=== PATIENT | male | born 1935 | race Hispanic/Latino ===

== ENCOUNTER 2017-06-20 12:55 | Inpatient (IN) | payer MEDICARE, BC ==
[2017-06-20 13:03] VITALS: BMI 31.5
--- NOTE | 2017-06-20 13:09 | ED PDOC ---
HPI:STROKE - Time Time: 13:07 - Historian Historian: EMS - Chief Complaint Chief Complaint: Mental status change, Confusion ( heard pt fall in other room at 9AM today. Unkown head injury. Has been vomiting since then and has been confused with difficulty speeking. Pt has no c/o.) - Onset Date: 06/20/17 Time: 09:00 - Timing Timing: Currently Symptomatic - Location Location: Mental Status, Speech - Severity of pain Maximum severity:: Moderate Pain Scale:: 0 Severity Current: Moderate Pain Scale:: 0 - Exacerbated by Exacerbated by:: Nothing - Relieved by Relieved by:: Nothing - TPA Positive for Contraindication: Yes Reason tPA is not being Administered: greater than 4 hours since last seen nl NIHSS Stroke Scale - How Severe is the Stroke Level of Consciousness: 0=Alert LOC to Questions: 1=One correct LOC to commands: 0=Obeys both correctly Best Gaze: 0=Normal Visual: 0=No visual loss Facial: 0=Normal Motor Arm - Left: 0=No drift Motor Arm - Right: 0=No drift Motor Leg - Left: 0=No drift Motor Leg - Right: 0=No drift Limb Ataxia: 0=Absent Sensory: 0=Normal Best Language: 1=Mild to moderate aphasia Dysarthia: 0=Normal articulation Extinction & Inattention (Neglect): 0=Normal, no object Score: 2 rTPA Inclusion/Exclusion - Refusal of Treatment Patient Refused Treatment: No - Inclusion Criteria for Altepase Patient is 18 years or Older: Yes The Clinical Diagnosis of Ischemic Stroke That is Causing a Potentially Disabling Neurological Deficit: No Time of Onset is Well Established to be Less Than 270 Minute Before Treatment Would Begin: No Risk/Benefit Discussed With Patient/Family Member Present: No Past Medical History - Medical History PMH: CAD, Diabetes, Hiatal Hernia, HTN, Hypercholesterolemia, Hyperlipidemia Denies: Arthritis, CHF, COPD, Hypothyroidism, Chronic Kidney Disease, Rheumatoid Arthritis - Surgical History Surgical History: Coronary Stent - Family History Family History: States: Unknown Family Hx - Home Medications Home Medications: Ambulatory Orders Medication Instructions Recorded Atorvastatin Calcium 80 mg PO DAILY 12/30/15 Lisinopril [Zestril] 10 mg PO DAILY 12/30/15 Metformin HCl [Glucophage] 500 mg PO BID 12/30/15 Metoprolol Succinate [Toprol XL] 50 mg PO DAILY 12/30/15 Omeprazole 40 mg PO DAILY 12/30/15 Moxifloxacin HCl [Avelox] 400 mg PO DAILY #5 tablet 12/31/15 - Allergies Allergies/Adverse Reactions: Allergies Allergy/AdvReac Type Severity Reaction Status Date / Time shrimp Allergy REDNESS Verified 09/16/16 11:04 simvastatin [From Zocor] Allergy RASH Verified 12/30/15 02:36 Review of Systems Review Of Systems: ROS cannot be obtained secondary to pt's inabilty to answer questions. Physical Exam - Reviewed Nursing Documentation Reviewed: Yes Vital Signs Reviewed: Yes - Physical Exam Appears: Positive for: Non-toxic, No Acute Distress Head Exam: Positive for: ATRAUMATIC, NORMAL INSPECTION, NORMOCEPHALIC Skin: Positive for: Normal Color, Warm, DRY Eye Exam: Positive for: EOMI, Normal appearance, PERRL ENT: Positive for: Normal ENT Inspection Neck: Positive for: Normal, Painless ROM Cardiovascular/Chest: Positive for: Regular Rate, Rhythm Respiratory: Positive for: CNT, Normal Breath Sounds Gastrointestinal/Abdominal: Positive for: Normal Exam, Bowel Sounds, Soft Back: Positive for: Normal Inspection Extremity: Positive for: Normal ROM Neurologic/Psych: Positive for: Alert, Aphasia (Expressive). Negative for: Oriented (x1) - Laboratory Results Result Diagrams: 06/20/17 13:20 06/20/17 13:20 - Progress Re-evaluation Time: 14:31 Condition: Improved - Critical Care Total Time (In Min): 30 Documented Critical Care: Time excludes all time spent performint seperately billable procedures Medical Decision Making Medical Decision Making: Expressive aphsia improved as BP imroved after IV Labetalol 130/75. Given pt's shrimp allergy, will hold CTA brain. Diff Dx. CVA vs TIA Seizure Hypertensive encephalopathy. Discussefd with Dr. Araya, recommends MRI brain and EEG tomorrow as well as ASA Disposition - Clinical Impression Clinical Impression: CVA (cerebral vascular accident) - Patient ED Disposition Is Patient to be Admitted: Yes - Disposition Disposition Time: 14:31 Condition: FAIR Forms: [facility] ([place]) - Pt Status Changed To: Hospital Disposition Of: Inpatient - Admit Certification Admit to Inpatient:: After my assessment, the patient will require hospitalization for at least two midnights. This is because of the severity of symptoms shown, intensity of services needed, and/or the medical risk in this patient being treated as an outpatient. - POA Present On Arrival: None
[2017-06-20] MEDS ORDERED: Labetalol 5 mg/ml Inj 20ML IVP STA ×3 (13:24→18:02)
--- NOTE | 2017-06-20 13:33 | CT ---
PROCEDURE: CT HEAD WITHOUT CONTRAST. HISTORY: code stroke COMPARISON: None available. TECHNIQUE: Axial computed tomography images were obtained through the head/brain without intravenous contrast. Radiation dose: Total exam DLP = 884.03 mGy-cm. This CT exam was performed using one or more of the following dose reduction techniques: Automated exposure control, adjustment of the mA and/or kV according to patient size, and/or use of iterative reconstruction technique. FINDINGS: HEMORRHAGE: No acute parenchymal, subarachnoid nor extra-axial hemorrhage. BRAIN: Moderate -significant diffuse/confluent chronic white matter ischemic changes seen extending peripherally into the deep and subcortical white matter both cerebral hemispheres. There appears to be some extension of these changes into the white matter tracts of both basal nuclei. There also appear to be at chronic brainstem lacunar type infarct changes as well Moderate generalized volume loss. Dolichoectasia of the basilar artery. The supraclinoid carotid arteries and proximal middle cerebral arteries are also slightly ectatic. Minor partially calcified atherosclerotic plaque both carotid siphons VENTRICLES: No evidence of obstructive hydrocephalus. CALVARIUM: Calvarium appears intact PARANASAL SINUSES: Unremarkable as visualized. No significant inflammatory changes. MASTOID AIR CELLS: Unremarkable as visualized. No inflammatory changes. OTHER FINDINGS: None. IMPRESSION: No acute intracranial hemorrhage. Moderate to significant chronic white matter ischemic changes with extension into the basal nuclei. . There also appear to be a few chronic brainstem lacunar-type infarct changes as well. Moderate volume loss Findings discussed with Dr. Pereira at approximately 1:25 p.m. with written down and read back verification.
[2017-06-20 13:36] LABS: BASO % 0.3 % (0.0-2.0); HEMATOCRIT 37.7 % (35.0-51.0); LYMPH % 12.4 % (20.0-40.0); MEAN CELL VOLUME 87.6 fl (80.0-94.0); MEAN CORPUSCULAR HGB CONC 33.1 g/dL (33.0-37.0); MEAN PLATELET VOLUME 8.3 fl (7.2-11.7); MONO # 0.3 K/uL (0.0-0.8); NEUT # 7.1 K/uL (1.8-7.0); NEUT % 84.3 % (50.0-75.0); WHITE BLOOD COUNT 8.4 K/uL (4.8-10.8)
[2017-06-20 13:39] LABS: ALB/GLOB RATIO 1.4 (1.0-2.1); ALKALINE PHOSPHATASE 79 U/L (38-126); ALT/SGPT 24 U/L (21-72); AST/SGOT 20 U/L (17-59); BILIRUBIN,TOTAL 0.8 mg/dl (0.2-1.3); BLOOD UREA NITROGEN 19 mg/dl (9-20); CALCIUM 10.1 mg/dL (8.4-10.2); CARBON DIOXIDE 22 mmol/L (22-30); CHLORIDE 102 mmol/L (98-107); CHOLESTEROL 128 mg/dL (0-199); GFR AFRICAN-AMERICAN > 60; GLUCOSE,RANDOM 219 mg/dL (75-110); POTASSIUM 4.2 MMOL/L (3.6-5.0); SODIUM 138 mmol/l (132-148); TOTAL PROTEIN 7.1 G/DL (6.3-8.2)
[2017-06-20 13:45] LABS: PARTIAL THROMBOPLASTIN TIME 27.4 Seconds (25.6-37.1)
[2017-06-20] MEDS ORDERED: Iohexol 300 100 ML IJ ONE (13:58)
[2017-06-20] MEDS ORDERED: Sodium Chloride 0.9% 50 ML IV ONE (13:58)
[2017-06-20] MEDS ORDERED: Sodium Chloride 0.9% 1,000 ML IV STA (14:23)
--- NOTE | 2017-06-20 14:36 | RAD ---
HISTORY: cva COMPARISON: Comparison chest 12/31/2015 FINDINGS: LUNGS: Poor inspiration with low lung volumes, crowded bronchovascular markings and mild bibasilar atelectasis. . There is a vague nodular density left lung apex which overlies left anterior 1st and 3rd ribs. This could represent small granuloma. Followup nonemergent CT scan of the chest could be performed for further evaluation. PLEURA: No significant pleural effusion identified, no pneumothorax apparent. CARDIOVASCULAR: Heart appears enlarged. Aorta is ectatic and uncoiled. OSSEOUS STRUCTURES: Mild multilevel degenerative spondylosis of the thoracic spine. . Mild dextroscoliosis centered in the lower thoracic region VISUALIZED UPPER ABDOMEN: Normal. OTHER FINDINGS: None. IMPRESSION: Poor inspiration with low lung volumes, crowded bronchovascular markings and mild bibasilar atelectasis. Questionable small granuloma left lung apex ; nonemergent CT scan of the chest could be performed further evaluation. . .
--- NOTE | 2017-06-20 14:59 | CP.PCM.HP ---
History of Present Illness - History of Present Illness History of Present Illness: 82 yo male with history of DM2, HTN, CAD (stent 10 yrs ago) and HLD brought in by confused and speaking nonsense when talked to in the ER. As per ER, heard him fell in the other room earlier this morning. Apparently, he was doing okay prior to the incident. Present on Admission - Present on Admission Any Indicators Present on Admission: No History of DVT/PE: No History of Uncontrolled Diabetes: No Urinary Catheter: No Decubitus Ulcer Present: No Review of Systems - Review of Systems Systems not reviewed;Unavailable: Altered Mental Status Past Patient History - Tetanus Immunizations Tetanus Immunization: Unknown - Past Medical History & Family History Past Medical History?: Yes - Past Social History Smoking Status: Unknown If Ever Smoked - CARDIAC Hx Congestive Heart Failure: No Hx Hypercholesterolemia: Yes Hx Hypertension: Yes - PULMONARY Hx Chronic Obstructive Pulmonary Disease (COPD): No - NEUROLOGICAL HX Cerebrovascular Accident: No - HEENT Hx HEENT Problems: ([place]) - RENAL Hx Chronic Kidney Disease: No - ENDOCRINE/METABOLIC Hx Diabetes Mellitus Type 2: Yes Hx Hypothyroidism: No - HEMATOLOGICAL/ONCOLOGICAL Hx Blood Disorders: No - INTEGUMENTARY Hx Dermatological Problems: No - MUSCULOSKELETAL/RHEUMATOLOGICAL Hx Arthritis: No Hx Falls: Yes (also admitted last year because of fall) Hx Rheumatoid Arthritis: No - GASTROINTESTINAL Hx Gastrointestinal Disorders: Yes - GENITOURINARY/GYNECOLOGICAL Hx Genitourinary Disorders: No - PSYCHIATRIC Hx Psychophysiologic Disorder: No Hx Substance Use: No - SURGICAL HISTORY Hx Coronary Stent: Yes - ANESTHESIA Hx Anesthesia: Yes Hx Anesthesia Reactions: No Meds Allergies/Adverse Reactions: Allergies Allergy/AdvReac Type Severity Reaction Status Date / Time shrimp Allergy REDNESS Verified 09/16/16 11:04 simvastatin [From Zocor] Allergy RASH Verified 12/30/15 02:36 Physical Exam - Constitutional Appears: No Acute Distress, Confused - Head Exam Head Exam: ATRAUMATIC - Eye Exam Eye Exam: PERRL. absent: Scleral icterus - ENT Exam ENT Exam: Mucous Membranes Moist - Neck Exam Neck exam: Negative for: Meningismus - Respiratory Exam Respiratory Exam: absent: Rhonchi, Wheezes - Cardiovascular Exam Cardiovascular Exam: REGULAR RHYTHM, +S1, +S2 - GI/Abdominal Exam GI & Abdominal Exam: Soft. absent: Tenderness - Rectal Exam Rectal Exam: Deferred - Extremities Exam Extremities exam: Negative for: pedal edema - Neurological Exam Neurological exam: Altered Additional comments: no focal neurologic deficit - Psychiatric Exam Psychiatric exam: Flat Affect - Skin Skin Exam: Dry, Intact Results - Vital Signs Recent Vital Signs: Last Vital Signs Temp 98.8 F 06/20/17 14:36 Pulse 61 06/20/17 14:33 Resp 20 06/20/17 14:33 BP 155/113 H 06/20/17 14:33 Pulse Ox 98 06/20/17 13:56 - Labs Result Diagrams: 06/20/17 13:20 06/20/17 13:20 Labs: Laboratory Results - last 24 hr 06/20/17 06/20/17 06/20/17 13:20 13:20 13:20 WBC 8.4 RBC 4.31 L Hgb 12.5 Hct 37.7 MCV 87.6 MCH 29.0 MCHC 33.1 RDW 15.0 H Plt Count 171 MPV 8.3 Neut % (Auto) 84.3 H Lymph % (Auto) 12.4 L [place] % (Auto) 3.0 Eos % (Auto) 0.0 Baso % (Auto) 0.3 Neut # 7.1 H Lymph # 1.0 [place] # 0.3 Eos # 0.0 Baso # 0.0 PT 13.2 H INR 1.3 H APTT 27.4 Sodium 138 Potassium 4.2 Chloride 102 Carbon Dioxide 22 Anion Gap 18 BUN 19 Creatinine 0.9 Est GFR ( Amer) > 60 Est GFR (Non-Af Amer) > 60 Random Glucose 219 H Calcium 10.1 Total Bilirubin 0.8 AST 20 ALT 24 Alkaline Phosphatase 79 Troponin I < 0.0120 Total Protein 7.1 Albumin 4.2 Globulin 2.9 Albumin/Globulin Ratio 1.4 Triglycerides 66 Cholesterol 128 LDL Cholesterol Direct 58 HDL Cholesterol 53 Blood Type Antibody Screen BBK History Checked 06/20/17 13:20 WBC RBC Hgb Hct MCV MCH MCHC RDW Plt Count MPV Neut % (Auto) Lymph % (Auto) [place] % (Auto) Eos % (Auto) Baso % (Auto) Neut # Lymph # [place] # Eos # Baso # PT INR APTT Sodium Potassium Chloride Carbon Dioxide Anion Gap BUN Creatinine Est GFR ( Amer) Est GFR (Non-Af Amer) Random Glucose Calcium Total Bilirubin AST ALT Alkaline Phosphatase Troponin I Total Protein Albumin Globulin Albumin/Globulin Ratio Triglycerides Cholesterol LDL Cholesterol Direct HDL Cholesterol Blood Type B POSITIVE Antibody Screen Negative BBK History Checked No verified bt Assessment & Plan (1) CVA (cerebral vascular accident) Status: Acute Comment: admit in telemetry. MRI and EEG. swallow evaluation and management. PT evaluation and management. neuro consult with Dr Araya. will hold statin and other home meds until pass swallow eval (2) Fall Status: Acute Comment: PT evaluation and management. patient also admitted last year after falling incident (3) CAD (coronary artery disease) Status: Acute Comment: continue ASA SC. hold other PO meds until passing swallow evaluation. cardiology consult with Dr Mcgill (4) Hypertension Status: Chronic Comment: BP uncontrolled. Hydralazine 10mg IV for SBP > 180 (5) DM2 (diabetes mellitus, type 2) Status: Acute Comment: francisco javier BENITES. HgA1C, BMP in am (6) Hyperlipidemia Status: Chronic Comment: statin on hold because of failing swallow evaluation (7) DVT prophylaxis Status: Acute Comment: venodyne boots while in bed. will avoid anti-coagulant at present because of the history of fall, not certain whether patient banged his head
[2017-06-20] MEDS: Sodium Chloride 0.9% 1,000 ML IV SCH (16:09)
--- NOTE | 2017-06-20 16:54 | US ---
PROCEDURE: Duplex ultrasound of the carotid and vertebral arteries. HISTORY: CVA COMPARISON: None available. TECHNIQUE: Grayscale and duplex Doppler evaluation of the cervical carotid and vertebral arteries were performed. The common carotid, carotid bifurcations and cervical ICA and proximal ECA were evaluated. The vertebral arteries were evaluated for gross patency and direction. FINDINGS: RIGHT CAROTID ARTERIES: No significant atherosclerotic plaque seen however minimal intimal thickening noted in the right common carotid artery. Maximal right ICA velocity = 50.7 cm/S. Maximal left CCA velocity = 65.1 cm/S ICA/CCA ratio = 0.8. LEFT CAROTID ARTERIES: No significant atherosclerotic plaque minimal intimal thickening noted in the left common carotid artery. Maximal left ICA velocity = 65.1 cm/S Maximal left CCA velocity = 50.26 cm/S ICA/CCA ratio = 0.9 VERTEBRAL ARTERIES: Right Vertebral Artery: Patent. Antegrade flow. Left Vertebral Artery: Patent. Antegrade flow. OTHER FINDINGS: None. IMPRESSION: No evidence of atherosclerotic plaque changes, occlusion or hemodynamically significant stenosis.
[2017-06-20 20:49] LABS: HEMATOCRIT 35.4 % (35.0-51.0); MEAN CELL VOLUME 89.4 fl (80.0-94.0); MEAN CORPUSCULAR HGB CONC 32.4 g/dL (33.0-37.0); WHITE BLOOD COUNT 9.7 K/uL (4.8-10.8)
--- NOTE | 2017-06-20 22:35 | CARD ---
APPROVED REPORT EKG Measurement Heart [id number] <Conclusion> Normal sinus rhythm Left axis deviation Minimal voltage criteria for LVH, may be normal variant Nonspecific T wave abnormality Abnormal ECG
[2017-06-20] MEDS ORDERED: DiphenhydrAMINE 50 mg/ml Inj IVP ONE (23:45)
[2017-06-21] MEDS: Sodium Chloride 0.9% 1,000 ML IV SCH ×3 (00:58→16:40)
[2017-06-21] MEDS ORDERED: DiphenhydrAMINE 50 mg/ml Inj IVP ONE (02:10)
[2017-06-21 07:45] LABS: BLOOD UREA NITROGEN 21 mg/dl (9-20); CALCIUM 9.6 mg/dL (8.4-10.2); CARBON DIOXIDE 23 mmol/L (22-30); CHLORIDE 102 mmol/L (98-107); GFR AFRICAN-AMERICAN > 60; GLUCOSE,RANDOM 175 mg/dL (75-110); POTASSIUM 3.6 MMOL/L (3.6-5.0); SODIUM 138 mmol/l (132-148)
[2017-06-21 08:03] LABS: BASO % 0.1 % (0.0-2.0); HEMATOCRIT 33.6 % (35.0-51.0); LYMPH # 1.3 K/uL (1.0-4.3); LYMPH % 12.7 % (20.0-40.0); MEAN CELL VOLUME 88.1 fl (80.0-94.0); MEAN CORPUSCULAR HEMOGLOBIN 29.1 pg (27.0-31.0); MEAN CORPUSCULAR HGB CONC 33.1 g/dL (33.0-37.0); MEAN PLATELET VOLUME 8.8 fl (7.2-11.7); MONO # 1.3 K/uL (0.0-0.8); MONO % 12.2 % (0.0-10.0); NEUT # 7.7 K/uL (1.8-7.0); RED CELL DISTRIBUTION WIDTH 14.8 % (11.5-14.5); WHITE BLOOD COUNT 10.2 K/uL (4.8-10.8)
[2017-06-21 08:09] LABS: THYROID STIMULATING HORMONE 0.54 mIU/ML (0.46-4.68)
[2017-06-21] MEDS ORDERED: Metoprolol Succinate 50 mg XL Tab PO SCH (09:00)
[2017-06-21] MEDS ORDERED: Pantoprazole 40 mg EC Tab PO SCH ×2 (12:00→13:47)
--- NOTE | 2017-06-21 12:06 | CP.PCM.CON ---
History of Present Illness - History of Present Illness History of Present Illness: THE PATIENT IS AN 82 YEAR OLD MALE WITH A HISTORY OF CAD WITH CHEST PAIN FOLLOWED BY AN ABNORMAL STRESS TEST AND THEN HE HAD A CARDIAC CATH AND A CORONARY STENT INSERTION AND HAS BEEN FINE SINCE WITHOUT CHEST PAIN AND WITH YEARLY STRESS TESTS THAT HAVE BEEN NEGATIVE FOR ISCHEMIA. HE ALSO HAS A HISTORY OF HYPERTENSION, HYPERLIPIDEMIA, TYPE 2 DM, A HIATAL HERNIA WITH REFLUX AND HE IS OVERWEIGHT. HIS HEARD HIM FALL YESTERDAY AND HE WAS CONFUSED AND HE WAS BROUGHT TO THE ER WHERE HE WAS CONFUSED AND HYPERTENSIVE BUT DID NOT HAVE ANY FOCAL DEFICITS. HE WAS GIVEN LABETOLOL AND ASPIRIN AND THE ER CT OF THE HEAD DID NOT SHOW ANY ACUTE INFARCT OR BLEED. THE ER PHYSICIAN CONSULTED WITH THE INTERVENTIONAL NEUROLOGIST AND IT WAS DECIDED NOT TO GIVE THE PATIENT TPA AND HE WAS ADMITTED TO 4N ON TELEMETRY AND AN MRI WAS ORDERED. THE BLOOD PRESSURE WAS INITIALLY 170/100 IN THE ER AND WAS HIGH 223/100 AT 6:46 PM AND IS NORMAL AT 128/67 THIS MORNING. THE NURSE REPORTED BROWN, COFFEE-COLORED VOMITUS LAST NIGHT, BUT NOT COFFE GROUND OR BLOODY VOMITUS. THIS MORNING HE IS AWAKE, ALERT, TALKATIVE AND ORIENTED TO PERSON AND PLACE BUT NOT TO THE DAY. HE IS ABLE TO HAVE A CONVERSATION BUT HIS MEMORY IS NOT THAT GOOD AND HE HAS NO RECALL OF WHAT HAPPENED TO HIM. HE DENIES ANY CHEST PAIN, PALPITATIONS OR NEUROLOGICAL DEFICIT. Past Patient History - Tetanus Immunizations Tetanus Immunization: Unknown - Past Medical History & Family History Past Medical History?: Yes - Past Social History Smoking Status: Former Smoker - CARDIAC Hx Cardiac Disorders: Yes Hx Congestive Heart Failure: No Hx Hypercholesterolemia: Yes Hx Hypertension: Yes - PULMONARY Hx Respiratory Disorders: No Hx Chronic Obstructive Pulmonary Disease (COPD): No - NEUROLOGICAL Hx Neurological Disorder: No HX Cerebrovascular Accident: No - HEENT Hx HEENT Problems: No - RENAL Hx Chronic Kidney Disease: No - ENDOCRINE/METABOLIC Hx Endocrine Disorders: Yes Hx Diabetes Mellitus Type 2: Yes - HEMATOLOGICAL/ONCOLOGICAL Hx Blood Disorders: No Hx AIDS: No Hx Human Immunodeficiency Virus (HIV): No - INTEGUMENTARY Hx Dermatological Problems: No - MUSCULOSKELETAL/RHEUMATOLOGICAL Hx Arthritis: No Hx Falls: Yes (today) Hx Rheumatoid Arthritis: No Other/Comment: FELL TODAY @ HOME IN THE BEDROOM - GASTROINTESTINAL Hx Gastrointestinal Disorders: Yes - GENITOURINARY/GYNECOLOGICAL Hx Genitourinary Disorders: No - PSYCHIATRIC Hx Psychophysiologic Disorder: No Hx Substance Use: No - SURGICAL HISTORY Hx Surgeries: Yes Hx Coronary Stent: Yes (10 YRS AGO) - ANESTHESIA Hx Anesthesia: Yes Hx Anesthesia Reactions: No Meds Allergies/Adverse Reactions: Allergies Allergy/AdvReac Type Severity Reaction Status Date / Time shrimp Allergy REDNESS Verified 09/16/16 11:04 simvastatin [From Zocor] Allergy RASH Verified 12/30/15 02:36 - Medications Medications: Current Medications Sodium Chloride (Sodium Chloride 0.9%) 1,000 mls @ 100 mls/hr IV .Q10H DOLLY Last Admin: 06/21/17 02:32 Dose: 100 mls/hr Pantoprazole Sodium (Protonix Ec Tab) 40 mg PO DAILY [facility] Physical Exam - Respiratory Exam Respiratory Exam: Clear to Auscultation Bilateral - Cardiovascular Exam Cardiovascular Exam: REGULAR RHYTHM, +S1, +S2 - Extremities Exam Extremities exam: Positive for: normal inspection - Neurological Exam Additional comments: NO NEUROLOGICAL DEFICITS [facility] AT BEST HE IS ORIENTED TO PERSON AND PLACE BUT NOT TO TIME HE COULD NOT TELL ME THE MONTH, DAY OF THE WEEK, DAY OF THE MONTH OR THAT IT IS THE HOLIDAY - Additional Findings Additional findings: EKG NSR, R 83, NSSTT 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 RHYTHM, RATE IN THE 50'S(ON METOPROLOL AT HOME AND RECEIVED LABETOLOL HERE) TROPONIN NEGATIVE CT OF THE HEAD NO ACUTE CHANGES, OLD LACUNAR INFARCTS Results - Vital Signs Recent Vital Signs: Last Vital Signs Temp 98.1 F 06/21/17 08:00 Pulse 49 L 06/21/17 08:00 Resp 20 06/21/17 08:00 BP 128/67 06/21/17 08:00 Pulse Ox 95 06/21/17 08:00 - Labs Result Diagrams: 06/21/17 05:30 06/21/17 04:00 Labs: Laboratory Results - last 24 hr 06/20/17 06/20/17 06/20/17 15:00 20:00 22:29 WBC 9.7 RBC 3.96 L Hgb 11.5 L Hct 35.4 MCV 89.4 MCH 29.0 MCHC 32.4 L RDW 15.0 H Plt Count 149 MPV Neut % (Auto) Lymph % (Auto) [place] % (Auto) Eos % (Auto) Baso % (Auto) Neut # Lymph # [place] # Eos # Baso # Sodium Potassium Chloride Carbon Dioxide Anion Gap BUN Creatinine Est GFR ( Amer) Est GFR (Non-Af Amer) POC Glucose (mg/dL) 223 H Random Glucose Hemoglobin A1c 7.2 H Calcium TSH 3rd Generation 06/21/17 06/21/17 06/21/17 04:00 05:30 05:30 WBC 10.2 RBC 3.81 L Hgb 11.1 L Hct 33.6 L MCV 88.1 MCH 29.1 MCHC 33.1 RDW 14.8 H Plt Count 140 MPV 8.8 Neut % (Auto) 75.0 Lymph % (Auto) 12.7 L [place] % (Auto) 12.2 H Eos % (Auto) 0.0 Baso % (Auto) 0.1 Neut # 7.7 H Lymph # 1.3 [place] # 1.3 H Eos # 0.0 Baso # 0.0 Sodium 138 Potassium 3.6 Chloride 102 Carbon Dioxide 23 Anion Gap 16 BUN 21 H Creatinine 0.8 Est GFR ( Amer) > 60 Est GFR (Non-Af Amer) > 60 POC Glucose (mg/dL) 206 H Random Glucose 175 H Hemoglobin A1c Calcium 9.6 TSH 3rd Generation 0.54 06/21/17 11:09 WBC RBC Hgb Hct MCV MCH MCHC RDW Plt Count MPV Neut % (Auto) Lymph % (Auto) [place] % (Auto) Eos % (Auto) Baso % (Auto) Neut # Lymph # [place] # Eos # Baso # Sodium Potassium Chloride Carbon Dioxide Anion Gap BUN Creatinine Est GFR ( Amer) Est GFR (Non-Af Amer) POC Glucose (mg/dL) 196 H Random Glucose Hemoglobin A1c Calcium TSH 3rd Generation Assessment & Plan - Assessment and Plan (Free Text) Assessment: TIA OR CEREBRAL INFARCT 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
--- NOTE | 2017-06-21 13:24 | MRI ---
PROCEDURE: MRI BRAIN WITHOUT CONTRAST HISTORY: CVA COMPARISON: Comparison made with prior CT scan brain 06/20/2017. TECHNIQUE: Multiplanar, multisequence MR images of the brain were obtained without intravenous contrast enhancement. Note that the study is limited by motion artifact FINDINGS: HEMORRHAGE: No acute parenchymal, subarachnoid or extra-axial hemorrhage. . No evidence of hemosiderin deposition identified on gradient echo weighted sequence. DWI: No evidence of an acute or early subacute infarction seen on diffusion imaging. . BRAIN PARENCHYMA: Moderate tailored to significant diffuse/confluent chronic white matter ischemic changes are seen extending peripherally into the deep and subcortical white matter both cerebral hemispheres. Additionally, there are multiple chronic appearing lacunar type infarcts scattered about the deep and subcortical white matter as well as both basal nuclei and probably the brainstem as well. Moderate -significant volume loss VENTRICLES: No obstructive hydrocephalus CRANIUM: Unremarkable. ORBITS: Orbits and contents unremarkable. PARANASAL SINUSES/MASTOIDS: Minimal mucosal thickening seen within a few ethmoid air cells. VASCULAR SYSTEM: Visualized major vascular flow voids at skull base are patent. Re- demonstrated is dolichoectasia of the basilar artery. The cavernous and supraclinoid segments of the carotid arteries are also ectatic OTHER FINDINGS: None. IMPRESSION: Limited motion degraded study. No evidence of acute hemorrhage or infarct. Moderate to significant chronic white matter and scattered basal nuclei ischemic changes. Moderate -significant volume loss.
--- NOTE | 2017-06-21 13:59 | CP.PCM.PN ---
Subjective - Date & Time of Evaluation Date of Evaluation: 06/21/17 Time of Evaluation: 11:00 - Subjective Subjective: Pt seen and examined. Appeared calmer although reported to have been agitated last night Objective - Vital Signs/Intake and Output Vital Signs (last 24 hours): Temp Pulse Resp BP Pulse Ox 98.5 F 55 L 18 116/66 96 06/21/17 12:00 06/21/17 12:00 06/21/17 12:00 06/21/17 12:00 06/21/17 12:00 - Medications Medications: Current Medications Aspirin (Ecotrin) 81 mg PO DAILY [facility] Sodium Chloride (Sodium Chloride 0.9%) 1,000 mls @ 100 mls/hr IV .Q10H [facility] Last Admin: 06/21/17 02:32 Dose: 100 mls/hr Lisinopril (Zestril) 10 mg PO DAILY [facility] Metformin HCl (Glucophage) 500 mg PO BIDWM [facility] Metoprolol Succinate (Toprol Xl) 50 mg PO DAILY [facility] Pantoprazole Sodium (Protonix Ec Tab) 40 mg PO DAILY [facility] - Labs Labs: 06/21/17 05:30 06/21/17 04:00 PT 13.2 Seconds (9.8-13.1) H 06/20/17 13:20 INR 1.3 (0.9-1.2) H 06/20/17 13:20 APTT 27.4 Seconds (25.6-37.1) 06/20/17 13:20 - Constitutional Appears: No Acute Distress - Head Exam Head Exam: ATRAUMATIC - Eye Exam Eye Exam: absent: Scleral icterus - ENT Exam ENT Exam: Mucous Membranes Moist - Neck Exam Neck Exam: absent: Meningismus - Respiratory Exam Respiratory Exam: absent: Rhonchi, Wheezes, Respiratory Distress - Cardiovascular Exam Cardiovascular Exam: REGULAR RHYTHM, +S1, +S2 - GI/Abdominal Exam GI & Abdominal Exam: Soft. absent: Tenderness - Rectal Exam Rectal Exam: Deferred - Neurological Exam Neurological Exam: Alert (oriented to time and place). absent: Oriented x3 - Psychiatric Exam Psychiatric exam: Flat Affect - Skin Skin Exam: Dry, Intact Assessment and Plan (1) CVA (cerebral vascular accident) Status: Acute (2) Fall Status: Acute (3) CAD (coronary artery disease) Status: Acute (4) Hypertension Status: Chronic (5) DM2 (diabetes mellitus, type 2) Status: Acute (6) Hyperlipidemia Status: Chronic (7) DVT prophylaxis Status: Acute - Assessment and Plan (Free Text) Assessment: 82 yo male with history of DM2, HTN, CAD (stent 10 yrs ago) and HLD brought in by confused and speaking nonsense. (1) CVA (cerebral vascular accident) CT scan: chronic white matter ischemic changes and chronic brainstem lacunar infarct MRI: no acute hemorrhage or infarct, chronic white matter ischemic changes EEG pending patient more alert and coherent and was able to follow instruction thus was able to pass swallow evaluation Dr Araya, neurologist, on consult (2) Fall PT evaluation and management. patient also admitted last year because of falling incident (3) CAD (coronary artery disease) continue ASA, Metoprolol and Lisinopril cardiology consult with Dr Mcgill (4) Hypertension BP stable resume Metoprolol and Lisinopril (5) DM2 (diabetes mellitus, type 2) HgA1C: 7.2 BS slightly uncontrolled accuchek ACHS resume Metformin 500mg PO q 12hrs (6) Hyperlipidemia pt noted to be allergic to Simvastatin but not sure if he was able to take Atorvastatin without adverse reaction (7) DVT prophylaxis venodyne boots while in bed. will avoid anti-coagulant at present because of the history of fall, not certain whether patient banged his head
--- NOTE | 2017-06-21 16:37 | CP.PCM.CON ---
History of Present Illness - History of Present Illness History of Present Illness: Mr. Bee is an 82-year-old right-handed man with a past medical history of DM2, HTN, CAD (stent 10 yrs ago) and HLD, who is normally coherent and does not have any speech difficulty. However, he states that the day before yesterday, he started to have some difficulty with saying what he wanted to say. It's as if he knew what he wanted to say, but it would not come out. He was brought in by his yesterday, and was clearly aphasic, but this gradually improved overnight. Last night, he was becoming slightly agitated and I gave him 25 mg of Benadryl. This seemed to help calm him down. This morning, he still has very slight paraphasic errors, but his speech is clear and he is able to provide a full history. He had no complaints. Review of Systems - Review of Systems All systems: reviewed and no additional remarkable complaints except Past Patient History - Tetanus Immunizations Tetanus Immunization: Unknown - Past Medical History & Family History Past Medical History?: Yes - Past Social History Smoking Status: Former Smoker - CARDIAC Hx Cardiac Disorders: Yes Hx Congestive Heart Failure: No Hx Hypercholesterolemia: Yes Hx Hypertension: Yes - PULMONARY Hx Respiratory Disorders: No Hx Chronic Obstructive Pulmonary Disease (COPD): No - NEUROLOGICAL Hx Neurological Disorder: No HX Cerebrovascular Accident: No - HEENT Hx HEENT Problems: No - RENAL Hx Chronic Kidney Disease: No - ENDOCRINE/METABOLIC Hx Endocrine Disorders: Yes Hx Diabetes Mellitus Type 2: Yes - HEMATOLOGICAL/ONCOLOGICAL Hx Blood Disorders: No Hx AIDS: No Hx Human Immunodeficiency Virus (HIV): No - INTEGUMENTARY Hx Dermatological Problems: No - MUSCULOSKELETAL/RHEUMATOLOGICAL Hx Arthritis: No Hx Falls: Yes (today) Hx Rheumatoid Arthritis: No Other/Comment: FELL TODAY @ HOME IN THE BEDROOM - GASTROINTESTINAL Hx Gastrointestinal Disorders: Yes - GENITOURINARY/GYNECOLOGICAL Hx Genitourinary Disorders: No - PSYCHIATRIC Hx Psychophysiologic Disorder: No Hx Substance Use: No - SURGICAL HISTORY Hx Surgeries: Yes Hx Coronary Stent: Yes (10 YRS AGO) - ANESTHESIA Hx Anesthesia: Yes Hx Anesthesia Reactions: No Meds Allergies/Adverse Reactions: Allergies Allergy/AdvReac Type Severity Reaction Status Date / Time shrimp Allergy REDNESS Verified 09/16/16 11:04 simvastatin [From Zocor] Allergy RASH Verified 12/30/15 02:36 - Medications Medications: Current Medications Aspirin (Ecotrin) 81 mg PO DAILY [facility] Sodium Chloride (Sodium Chloride 0.9%) 1,000 mls @ 100 mls/hr IV .Q10H [facility] Last Admin: 06/21/17 02:32 Dose: 100 mls/hr Lisinopril (Zestril) 10 mg PO DAILY [facility] Metformin HCl (Glucophage) 500 mg PO BIDWM [facility] Metoprolol Succinate (Toprol Xl) 50 mg PO DAILY [facility] Pantoprazole Sodium (Protonix Ec Tab) 40 mg PO DAILY [facility] Physical Exam - Constitutional Appears: Well - Head Exam Head Exam: ATRAUMATIC, NORMAL INSPECTION, NORMOCEPHALIC - Eye Exam Eye Exam: EOMI, Normal appearance, PERRL - ENT Exam ENT Exam: Mucous Membranes Moist, Normal Exam - Respiratory Exam Respiratory Exam: Clear to Auscultation Bilateral, NORMAL BREATHING PATTERN - Cardiovascular Exam Cardiovascular Exam: REGULAR RHYTHM, +S1, +S2 - GI/Abdominal Exam GI & Abdominal Exam: Normal Bowel Sounds, Soft. absent: Tenderness - Rectal Exam Rectal Exam: Deferred - Extremities Exam Extremities exam: Positive for: normal inspection - Back Exam Back exam: NORMAL INSPECTION - Neurological Exam Neurological exam: Alert, CN II-XII Intact, Normal Gait, Oriented x3, Reflexes Normal Additional comments: Occasional paraphasic errors, but naming, repetition and reading appear intact. - Expanded Neurological Exam Expanded Patient oriented to: person, place, time Cranial nerves: EOM's Intact: Normal, Facial Sensation: Normal Ataxia: No Cerebellar Function: Finger to Nose: Normal, Heel to [place]mezquita: Normal, Romberg: Normal Upper motor neuron: Babinski Sign: Normal, Pronator Drift: Normal Sensory exam: Lower Extremity Light Touch: Normal, Lower Extremity Pin Prick: Normal, Upper Extremity Light Touch: Normal, Upper Extremity Pin Prick: Normal Neuro motor strength exam: Left Upper Extremity: 5, Right Upper Extremity: 5, Left Lower Extremity: 5, Right Lower Extremity: 5 DTR: Achilles Tendon Left: 2+, Achilles Tendon Right: 2+, Bicep Left: 2+, Bicep Right: 2+, Brachioradialis Left: 2+, Brachioradialis Right: 2+, Patellar Left: 2 +, Patellar Right: 2+, Tricep Left: 2+, Tricep Right: 2+ Results - Vital Signs Recent Vital Signs: Last Vital Signs Temp 99.3 F 06/21/17 15:33 Pulse 52 L 06/21/17 15:33 Resp 20 06/21/17 15:33 BP 111/64 06/21/17 15:33 Pulse Ox 98 06/21/17 15:33 - Labs Result Diagrams: 06/21/17 05:30 06/21/17 04:00 Labs: Laboratory Results - last 24 hr 06/20/17 06/20/17 06/20/17 15:00 20:00 22:29 WBC 9.7 RBC 3.96 L Hgb 11.5 L Hct 35.4 MCV 89.4 MCH 29.0 MCHC 32.4 L RDW 15.0 H Plt Count 149 MPV Neut % (Auto) Lymph % (Auto) [place] % (Auto) Eos % (Auto) Baso % (Auto) Neut # Lymph # [place] # Eos # Baso # Sodium Potassium Chloride Carbon Dioxide Anion Gap BUN Creatinine Est GFR ( Amer) Est GFR (Non-Af Amer) POC Glucose (mg/dL) 223 H Random Glucose Hemoglobin A1c 7.2 H Calcium TSH 3rd Generation 06/21/17 06/21/17 06/21/17 04:00 05:30 05:30 WBC 10.2 RBC 3.81 L Hgb 11.1 L Hct 33.6 L MCV 88.1 MCH 29.1 MCHC 33.1 RDW 14.8 H Plt Count 140 MPV 8.8 Neut % (Auto) 75.0 Lymph % (Auto) 12.7 L [place] % (Auto) 12.2 H Eos % (Auto) 0.0 Baso % (Auto) 0.1 Neut # 7.7 H Lymph # 1.3 [place] # 1.3 H Eos # 0.0 Baso # 0.0 Sodium 138 Potassium 3.6 Chloride 102 Carbon Dioxide 23 Anion Gap 16 BUN 21 H Creatinine 0.8 Est GFR ( Amer) > 60 Est GFR (Non-Af Amer) > 60 POC Glucose (mg/dL) 206 H Random Glucose 175 H Hemoglobin A1c Calcium 9.6 TSH 3rd Generation 0.54 06/21/17 11:09 WBC RBC Hgb Hct MCV MCH MCHC RDW Plt Count MPV Neut % (Auto) Lymph % (Auto) [place] % (Auto) Eos % (Auto) Baso % (Auto) Neut # Lymph # [place] # Eos # Baso # Sodium Potassium Chloride Carbon Dioxide Anion Gap BUN Creatinine Est GFR ( Amer) Est GFR (Non-Af Amer) POC Glucose (mg/dL) 196 H Random Glucose Hemoglobin A1c Calcium TSH 3rd Generation - Imaging and Cardiology MRI - head Status: Image reviewed by me, Report reviewed by me (No acute stroke. Evidence of chronic lacunar infarcts in basal ganglia) Assessment & Plan (1) CVA (cerebral vascular accident) Assessment and Plan: The MRI was slightly degraded by motion artifact, and clinically the patient is nearly back to baseline with very minimal residual deficits. This is likely a transient ischemic attack, but a lacunar stroke that may have been missed due to the motion artifact cannot be excluded, especially considering the patient's risk factors. I recommend the followin. Telemetry 2. CTA of the head/neck 3. Echocardiogram with bubble study 4. Aspirin 81 mg daily 5. Consider statin, but his LDL is 58, and it is probably not necessary 6. PT/OT eval and treat 7. Check HbA1c, CRP/ESR, homocysteine, B12, folate, TSH/T3/T4 8. Case management consult Thank you. Status: Acute Priority: High
[2017-06-21] MEDS: Pantoprazole 40 mg EC Tab PO SCH (16:39)
[2017-06-21] MEDS: Metoprolol Succinate 50 mg XL Tab PO SCH (16:40)
[2017-06-22] MEDS ORDERED: Sodium Chloride 0.9% 100 ML ONE (08:32)
[2017-06-22] MEDS ORDERED: Iohexol 300 50 ML ONE (08:32)
[2017-06-22] MEDS: Metoprolol Succinate 50 mg XL Tab PO SCH (09:53)
[2017-06-22] MEDS: Pantoprazole 40 mg EC Tab PO SCH (09:53)
[2017-06-22] MEDS: Sodium Chloride 0.9% 1,000 ML IV SCH (09:54)
--- NOTE | 2017-06-22 10:00 | CT ---
PROCEDURE: CT Angiography of the Brain and neck. HISTORY: TIA COMPARISON: None available. TECHNIQUE: CT angiography of the intracranial and cervical arteries was performed. Coronal and sagittal maximum intensity projection reformated images were generated. Contrast dose- Omnipaque 300, 95 cc. Total radiation dose: [address] exam was performed using one or more of the following dose reduction techniques: Automated exposure control, adjustment of the mA and/or kV according to patient size, and/or use of iterative reconstruction technique. FINDINGS: INTERNAL CEREBRAL ARTERIES: Unremarkable. The skull base, petrous, cavernous and supraclinoid segments are bilaterally widely patient. ANTERIOR CEREBRAL ARTERIES: Unremarkable. A1 and A2 segments are widely patent. Smaller distal branches unremarkable, as visualized. MIDDLE CEREBRAL ARTERIES: Unremarkable. M1 and M2 segments are widely patent. Perisylvian branches grossly symmetric. POSTERIOR CIRCULATION: Basilar Artery: Unremarkable. Distal Vertebral Arteries: Unremarkable. Posterior Cerebral Arteries: Unremarkable. Posterior Inferior Cerebellar Arteries: Unremarkable. ANEURYSM/ VASCULAR MALFORMATIONS: None. OTHER FINDINGS: The bilateral common carotid appear widely patent as well as the vertebral arteries from their origins to the bifurcations. Cervical internal carotid artery segments are widely patent as well including the bilateral carotid bulb regions. No significant stenosis identified. IMPRESSION: Unremarkable CT Angiography of the Brain and neck.
--- NOTE | 2017-06-22 10:41 | CP.PCM.PN ---
Subjective - Date & Time of Evaluation Date of Evaluation: 06/22/17 Time of Evaluation: 10:30 - Subjective Subjective: FEELS BETTER TODAY MUCH CLEARER MENTALLY ALSO TOLD ME FOR FIRST TIME HE WAS VOMITING FOR A DAY OR TWO PRIOR TO ADMISSION Objective - Vital Signs/Intake and Output Vital Signs (last 24 hours): Temp Pulse Resp BP Pulse Ox 97.8 F 68 20 164/96 H 95 06/22/17 08:00 06/22/17 09:53 06/22/17 08:00 06/22/17 09:53 06/22/17 08:00 - Medications Medications: Current Medications Aspirin (Ecotrin) 81 mg PO DAILY [facility] Last Admin: 06/22/17 09:54 Dose: 81 mg Sodium Chloride (Sodium Chloride 0.9%) 1,000 mls @ 100 mls/hr IV .Q10H [facility] Last Admin: 06/22/17 09:54 Dose: Not Given Lisinopril (Zestril) 10 mg PO DAILY [facility] Last Admin: 06/22/17 09:52 Dose: 10 mg Metformin HCl (Glucophage) 500 mg PO BIDWM [facility] Last Admin: 06/22/17 09:52 Dose: 500 mg Metoprolol Succinate (Toprol Xl) 50 mg PO DAILY [facility] Last Admin: 06/22/17 09:53 Dose: 50 mg Pantoprazole Sodium (Protonix Ec Tab) 40 mg PO DAILY [facility] Last Admin: 06/22/17 09:53 Dose: 40 mg - Labs Labs: 06/21/17 05:30 06/21/17 04:00 PT 13.2 Seconds (9.8-13.1) H 06/20/17 13:20 INR 1.3 (0.9-1.2) H 06/20/17 13:20 APTT 27.4 Seconds (25.6-37.1) 06/20/17 13:20 - Respiratory Exam Respiratory Exam: Clear to Ausculation Bilateral - Cardiovascular Exam Cardiovascular Exam: REGULAR RHYTHM, +S1, +S2 - Extremities Exam Extremities Exam: Normal Inspection - Additional Findings Additional findings: [employer] NSR MRI DID NOW SHOW ANY ACUTE PATHOLOGY CTA OF NECK AND BRAIN IS NORMAL NEUROLOGY CONSULT REVIEWED Assessment and Plan - Assessment and Plan (Free Text) Assessment: TIA-POSSIBLY FROM ELEVATED BLOOD PRESSURE SINCE HE WAS VOMITING PRIOR TO ADMISSION AND WASN'T ABLE TO KEEP DOWN HIS ANTI HYPERTENSIVE MEDICATIONS HYPERTENSION CAD-STABLE HYPERLIPIDEMIA Plan: CONTINUE ASPIRIN METOPROLOL, LISINOPRIL, METFORMEN AND ATORVASTATIN RESUMED ECHOCARDIGRAM WITH BUBBLE STUDY TODAY
--- NOTE | 2017-06-22 11:44 | CP.PCM.PN ---
Subjective - Date & Time of Evaluation Date of Evaluation: 06/22/17 Time of Evaluation: 11:30 - Subjective Subjective: No fever Pt less confused today alert, oriented to person and place but not date/year has difficulty finding words denies CP no SOB no abd pain no Headache no dizziness Objective - Vital Signs/Intake and Output Vital Signs (last 24 hours): Temp Pulse Resp BP Pulse Ox 97.8 F 68 20 164/96 H 95 06/22/17 08:00 06/22/17 09:53 06/22/17 08:00 06/22/17 09:53 06/22/17 08:00 - Medications Medications: Current Medications Aspirin (Ecotrin) 81 mg PO DAILY [facility] Last Admin: 06/22/17 09:54 Dose: 81 mg Sodium Chloride (Sodium Chloride 0.9%) 1,000 mls @ 100 mls/hr IV .Q10H [facility] Last Admin: 06/22/17 09:54 Dose: Not Given Lisinopril (Zestril) 10 mg PO DAILY [facility] Last Admin: 06/22/17 09:52 Dose: 10 mg Metformin HCl (Glucophage) 500 mg PO BIDWM [facility] Last Admin: 06/22/17 09:52 Dose: 500 mg Metoprolol Succinate (Toprol Xl) 50 mg PO DAILY [facility] Last Admin: 06/22/17 09:53 Dose: 50 mg Pantoprazole Sodium (Protonix Ec Tab) 40 mg PO DAILY [facility] Last Admin: 06/22/17 09:53 Dose: 40 mg - Labs Labs: 06/21/17 05:30 06/21/17 04:00 PT 13.2 Seconds (9.8-13.1) H 06/20/17 13:20 INR 1.3 (0.9-1.2) H 06/20/17 13:20 APTT 27.4 Seconds (25.6-37.1) 06/20/17 13:20 - Constitutional Appears: No Acute Distress - Head Exam Head Exam: NORMAL INSPECTION, NORMOCEPHALIC - Eye Exam Eye Exam: EOMI, Normal appearance Pupil Exam: NORMAL ACCOMODATION - ENT Exam ENT Exam: Mucous Membranes Moist, Normal External Ear Exam - Neck Exam Neck Exam: Full ROM. absent: Meningismus - Respiratory Exam Respiratory Exam: NORMAL BREATHING PATTERN. absent: Rales, Wheezes, Respiratory Distress - Cardiovascular Exam Cardiovascular Exam: REGULAR RHYTHM, +S1, +S2 - GI/Abdominal Exam GI & Abdominal Exam: Soft, Normal Bowel Sounds. absent: Tenderness - Extremities Exam Extremities Exam: Full ROM, Normal Capillary Refill. absent: Calf Tenderness, Pedal Edema - Back Exam Back Exam: Full ROM. absent: CVA tenderness (L), CVA tenderness (R), paraspinal tenderness, vertebral tenderness - Neurological Exam Neurological Exam: Alert, Awake, CN II-XII Intact Neuro motor strength exam: Left Upper Extremity: 5, Right Upper Extremity: 5, Left Lower Extremity: 5, Right Lower Extremity: 5 Additional comments: oriented to person and place Does not know year - Psychiatric Exam Psychiatric exam: Normal Affect, Normal Mood - Skin Skin Exam: Dry, Normal Color, Warm Assessment and Plan - Assessment and Plan (Free Text) Assessment: 82 yo male with history of DM2, HTN, CAD (stent 10 yrs ago) and HLD brought in by bec of aletration in mental status. Pt's noted that pt was very confused and had difficulty expressing himself. Also had fallen at home. (1) TIA/CVA (cerebral vascular accident) CT scan: chronic white matter ischemic changes and chronic brainstem lacunar infarct MRI: no acute hemorrhage or infarct, chronic white matter ischemic changes EEG pending patient better , now alert, oriented to person and place, still with difficulty recalling and has difficulty finding words Dr Araya, neurologist, on consult Speech for Cognitive eval and tx cont ASA no statin as LDL low PT/OT consult CTA of head/Neck : neg Carotid Sono; no significant stenosis ECHO with bubble study pending TSH, b12 normal (2) Fall PT evaluation and management. patient charley also admitted for after a fall last year no fractures on imaging , denies pain , full ROM (3) CAD (coronary artery disease) continue ASA, Metoprolol and Lisinopril cardiology consult with Dr Mcgill (4) Hypertension BP stable resume Metoprolol and Lisinopril allow for some permissive HTN due to CVA (5) DM2 (diabetes mellitus, type 2) HgA1C: 7.2 BS slightly uncontrolled accuchek ACHS resume Metformin 500mg PO q 12hrs (6) DVT prophylaxis venodyne boots while in bed. Lovenox
[2017-06-22] MEDS ORDERED: Enoxaparin 40 mg Syringe SC STA (15:02)
[2017-06-22] MEDS ORDERED: Insulin Lispro (humaLOG) 100 Units/ml Inj SC SCH (22:00)
[2017-06-22] MEDS: Insulin Lispro (humaLOG) 100 Units/ml Inj SC SCH (22:15)
[2017-06-23 04:57] VITALS: O2SAT 97
[2017-06-23 05:43] LABS: HOMOCYSTEINE 11.8 umol/L (<11.4)
[2017-06-23 08:19] VITALS: PULSE 66; RESP 18; TEMP 97.9
[2017-06-23] MEDS: Insulin Lispro (humaLOG) 100 Units/ml Inj SC SCH (08:40)
[2017-06-23] MEDS: Metoprolol Succinate 50 mg XL Tab PO SCH (08:46)
[2017-06-23 08:47] VITALS: BP 166/98
[2017-06-23] MEDS: Pantoprazole 40 mg EC Tab PO SCH (08:47)
[2017-06-23] MEDS ORDERED: Enoxaparin 40 mg Syringe SC SCH (09:00)
--- NOTE | 2017-06-23 09:50 | CP.PCM.DIS ---
Provider - Provider Date of Admission: 06/20/17 14:24 Attending physician: Harvinder Mayorga MD Primary care physician: Dr Mcgill Consults: Neuro : dr Araya Cardio : Dr Mcgill Time Spent in preparation of Discharge (in minutes): 25 Diagnosis - Discharge Diagnosis (1) CVA (cerebral vascular accident) Status: Acute Priority: High (2) CAD (coronary artery disease) Status: Chronic (3) DM2 (diabetes mellitus, type 2) Status: Chronic (4) Fall as cause of accidental injury in home as place of occurrence Status: Acute (5) Hyperlipidemia Status: Chronic (6) Hypertension Status: Chronic (7) DVT prophylaxis Status: Acute Hospital Course - Lab Results Lab Results: Most Recent Lab Values WBC 10.2 K/uL (4.8-10.8) 06/21/17 05:30 RBC 3.81 Mil/uL (4.40-5.90) L 06/21/17 05:30 Hgb 11.1 g/dL (12.0-18.0) L 06/21/17 05:30 Hct 33.6 % (35.0-51.0) L 06/21/17 05:30 MCV 88.1 fl (80.0-94.0) 06/21/17 05:30 MCH 29.1 pg (27.0-31.0) 06/21/17 05:30 MCHC 33.1 g/dL (33.0-37.0) 06/21/17 05:30 RDW 14.8 % (11.5-14.5) H 06/21/17 05:30 Plt Count 140 K/uL (130-400) 06/21/17 05:30 MPV 8.8 fl (7.2-11.7) 06/21/17 05:30 Neut % (Auto) 75.0 % (50.0-75.0) 06/21/17 05:30 Lymph % (Auto) 12.7 % (20.0-40.0) L 06/21/17 05:30 Lanier % (Auto) 12.2 % (0.0-10.0) H 06/21/17 05:30 Eos % (Auto) 0.0 % (0.0-4.0) 06/21/17 05:30 Baso % (Auto) 0.1 % (0.0-2.0) 06/21/17 05:30 Neut # 7.7 K/uL (1.8-7.0) H 06/21/17 05:30 Lymph # 1.3 K/uL (1.0-4.3) 06/21/17 05:30 Lanier # 1.3 K/uL (0.0-0.8) H 06/21/17 05:30 Eos # 0.0 K/uL (0.0-0.7) 06/21/17 05:30 Baso # 0.0 K/uL (0.0-0.2) 06/21/17 05:30 PT 13.2 Seconds (9.8-13.1) H 06/20/17 13:20 INR 1.3 (0.9-1.2) H 06/20/17 13:20 APTT 27.4 Seconds (25.6-37.1) 06/20/17 13:20 Sodium 138 mmol/l (132-148) 06/21/17 04:00 Potassium 3.6 MMOL/L (3.6-5.0) 06/21/17 04:00 Chloride 102 mmol/L (98-107) 06/21/17 04:00 Carbon Dioxide 23 mmol/L (22-30) 06/21/17 04:00 Anion Gap 16 (10-20) 06/21/17 04:00 BUN 21 mg/dl (9-20) H 06/21/17 04:00 Creatinine 0.8 mg/dL (0.8-1.5) 06/21/17 04:00 Est GFR ( Amer) > 60 06/21/17 04:00 Est GFR (Non-Af Amer) > 60 06/21/17 04:00 POC Glucose (mg/dL) 115 mg/dL (65-110) H 06/23/17 05:30 Random Glucose 175 mg/dL (75-110) H 06/21/17 04:00 Hemoglobin A1c 7.2 % (4.2-6.5) H 06/20/17 15:00 Calcium 9.6 mg/dL (8.4-10.2) 06/21/17 04:00 Total Bilirubin 0.8 mg/dl (0.2-1.3) 06/20/17 13:20 AST 20 U/L (17-59) 06/20/17 13:20 ALT 24 U/L (21-72) 06/20/17 13:20 Alkaline Phosphatase 79 U/L (38-126) 06/20/17 13:20 Troponin I < 0.0120 ng/mL (0.00-0.120) 06/20/17 13:20 C-React Prot High Sens 2.46 mg/L (1.00-3.00) 06/22/17 10:41 Total Protein 7.1 G/DL (6.3-8.2) 06/20/17 13:20 Albumin 4.2 g/dL (3.5-5.0) 06/20/17 13:20 Globulin 2.9 gm/dL (2.2-3.9) 06/20/17 13:20 Albumin/Globulin Ratio 1.4 (1.0-2.1) 06/20/17 13:20 Triglycerides 66 mg/DL (0-149) 06/20/17 13:20 Cholesterol 128 mg/dL (0-199) 06/20/17 13:20 LDL Cholesterol Direct 58 mg/dL (0-129) 06/20/17 13:20 HDL Cholesterol 53 MG/DL (30-70) 06/20/17 13:20 Vitamin B12 592 pg/mL (239-931) 06/22/17 10:41 Homocysteine 11.8 umol/L ( <11.4) H 06/22/17 10:41 TSH 3rd Generation 0.54 mIU/ML (0.46-4.68) 06/21/17 04:00 Stool Occult Blood Negative (NEGATIVE) 06/21/17 21:22 Blood Type B POSITIVE 06/20/17 13:20 Antibody Screen Negative 06/20/17 13:20 BBK History Checked No verified bt 06/20/17 13:20 - Hospital Course Hospital Course: 82 yo male with history of DM2, HTN, CAD (stent 10 yrs ago) and HLD brought in by bec of aletration in mental status. Pt's noted that pt was very confused and had difficulty expressing himself. Also had fallen at home. (1) CVA (cerebral vascular accident) with ognitive impairment CT scan: chronic white matter ischemic changes and chronic brainstem lacunar infarct MRI: no acute hemorrhage or infarct, chronic white matter ischemic changes( cannot r/o small lacunar infarct bec study is limited by motion artifacts) EEG pending patient better , now alert, oriented to person and place, still with difficulty recalling and has difficulty finding words Dr Araya, neurologist, on consult Speech for Cognitive eval and tx cont ASA low LDL however pt was on lipitor 80 mg at home - will start low dose Lipitor and rpt Lipid panel PT/OT consulted- rec TCU CTA of head/Neck : neg Carotid Sono; no significant stenosis ECHO : normal LV fxn, aortic sclerosis TSH, b12 normal Discussed with Neuro - ok now to slowly decrease BP to target 130-140 systolic (2) Fall PT evaluation and management - recTCU placement patient was also admitted for after a fall last year no fractures on imaging , denies pain , full ROM (3) CAD (coronary artery disease) continue ASA, Metoprolol and Lisinopril cardiology consult with Dr Mcgill (4) Hypertension BP stable resume Metoprolol and Lisinopril initially - some permissive HTN due to CVA now ok to slowly decrease BP to target of 130-140 syst as per neuro rec (5) DM2 (diabetes mellitus, type 2) HgA1C: 7.2 BS slightly uncontrolled accuchek ACHS held Metformin 500mg PO q 12hrs due to pt receiving IV contrast for the CTA (6) DVT prophylaxis venodyne boots while in bed. Lovenox Discharge Exam - Head Exam Head Exam: NORMAL INSPECTION, NORMOCEPHALIC - Eye Exam Eye Exam: EOMI, Normal appearance Pupil Exam: NORMAL ACCOMODATION - ENT Exam ENT Exam: Mucous Membranes Moist, Normal External Ear Exam - Neck Exam Neck exam: Full Rom - Respiratory Exam Respiratory Exam: NORMAL BREATHING PATTERN. absent: Respiratory Distress - Cardiovascular Exam Cardiovascular Exam: REGULAR RHYTHM, +S1, +S2 - GI/Abdominal Exam GI & Abdominal Exam: Normal Bowel Sounds, Soft. absent: Tenderness - Extremities Exam Extremities exam: full ROM, normal capillary refill, pedal pulses present - Back Exam Back exam: FULL ROM. absent: CVA tenderness (L), CVA tenderness (R), paraspinal tenderness, vertebral tenderness - Neurological Exam Neurological exam: Alert, CN II-XII Intact, Reflexes Normal Additional comments: oriented to person and place cognitive impairment - Psychiatric Exam Psychiatric exam: Normal Affect, Normal Mood - Skin Skin Exam: Dry, Normal Color, Warm Discharge Plan - Discharge Medications Prescriptions: Atorvastatin [Lipitor] 10 mg PO DIN #1 tab - Follow Up Plan Condition: IMPROVED Disposition: TRANSF TO SNF Additional Instructions: d/c to TCU Clinical Quality Measures - CQM - Stroke Antithrombotic Prescribed: Yes Anticoagulation Prescribed for Atrial Flutter, Atrial Fibrillation and History of:: Not Applicable Statin prescribed: Yes
--- NOTE | 2017-06-23 11:28 | CARD ---
APPROVED REPORT EXAM: Two-dimensional and M-mode echocardiogram with Doppler and color Doppler. Other Information Quality : GoodRhythm : NSR INDICATION ASD Echo Enhancing Agent Indication: Rule Out Septal Defect Agent/Amount Used: Agitated Saline 2D DIMENSIONS IVSd1.69 (0.7-1.1cm)LVDd3.83 (3.9-5.9cm) LVOT Diameter2.21 (1.8-2.4cm)PWd1.03 (0.7-1.1cm) IVSs1.89 (0.8-1.2cm)LVDs2.87 (2.5-4.0cm) FS (%) 25.1 %PWs1.52 (0.8-1.2cm) M-Mode DIMENSIONS Left Atrium (MM)2.82 (2.5-4.0cm)IVSd0.59 (0.7-1.1cm) Aortic Root3.68 (2.2-3.7cm)LVDd5.68 (4.0-5.6cm) Aortic Cusp Exc.2.06 (1.5-2.0cm)PWd0.94 (0.7-1.1cm) IVSs1.59 cmFS (%) 40 % LVDs3.41 (2.0-3.8cm)PWs1.59 cm Mitral Valve MV E Ntijrxou59.8cm/sMV DECEL [id number] A Gdlnqewm04.4cm/s MV EHT62riD/A ratio0.9MVA (PHT)3.08cm2 TDI E/Lateral E'0.0E/Medial E'0.0 Pulmonary Valve PV Peak Nodtrykm64.4cm/s LEFT VENTRICLE The left ventricle is normal size. There is normal left ventricular wall thickness. The left ventricular function is normal. The left ventricular ejection fraction is 60% There is normal LV segmental wall motion. Transmitral Doppler flow pattern is Grade I-abnormal relaxation pattern. No left ventricle thrombus noted on this study. There is no ventricular septal defect visualized. There is no left ventricular aneurysm. There is no mass noted in the left ventricle. RIGHT VENTRICLE The right ventricle is normal size. There is normal right ventricular wall thickness. The right ventricular systolic function is normal. ATRIA The left atrium size is normal. The right atrium size is normal. The interatrial septum is intact with no evidence for an atrial septal defect. AORTIC VALVE The aortic valve is moderately sclerotic. No aortic regurgitation is present. There is no aortic valvular stenosis. There is no aortic valvular vegetation. MITRAL VALVE The mitral valve is normal in structure and function. There is no evidence of mitral valve prolapse. There is no mitral valve stenosis. There is no mitral valve regurgitation noted. TRICUSPID VALVE The tricuspid valve is normal in structure and function. There is no tricuspid valve regurgitation noted. There is no tricuspid valve prolapse or vegetation. There is no tricuspid valve stenosis. PULMONIC VALVE The pulmonary valve is normal in structure and function. There is no pulmonic valvular regurgitation. There is no pulmonic valvular stenosis. GREAT VESSELS The aortic root is normal in size. The ascending aorta is normal in size. The IVC is normal in size and collapses >50% with inspiration. PERICARDIAL EFFUSION The pericardium appears normal. There is no pleural effusion. <Conclusion> Normal LV Systolic Function Aortic Valve Sclerosis
[2017-06-23 13:26] LABS: FOLATE > 20.0 ng/mL
--- NOTE | 2017-06-24 16:11 | EEG ---
DATE: 06/24/2017 ELECTROENCEPHALOGRAM CONDITION OF THE RECORDING: Drowsy. DIAGNOSIS: Evaluate for seizure. MEDICATIONS: Reviewed by nurse reconciliation sheet. INTERPRETATION: This is a 16-channel international recording. The background activity of this tracing was composed of 5 to 7 cycles per second. There was limited amount of beta activity of 15 to 20 cycles per second seen during this recording. There was increased amount of theta activity 5 to 7 cycles per second seen during this tracing. Drowsiness was characterized by mixed beta and theta activities. The sleep was characterized by vertex transient waves, sleep spindles and bilateral slowing. Photic stimulation showed no changes in the tracing. No paroxysmal activity noted on this recording. CONCLUSION: This is an abnormal EEG due to presence of mild diffuse slowing throughout the recording consistent with mild bilateral cerebral dysfunction. No evidence of any epileptiform activity. Please clinically correlate. Wallace Kincaid MD
== END 2017-06-23 11:30 | DRG 66 ==
LOC: H.ER 12:55 → H.ERHOLD 14:24 → H.TEL 17:13
DX: I63.9 Cerebral infarction, unspecified (principal); R47.01 Aphasia; E11.9 Type 2 diabetes mellitus without complications; I25.10 Atherosclerotic heart disease of native coronary artery without angina pectoris; I10 Essential (primary) hypertension; E78.5 Hyperlipidemia, unspecified; K21.9 Gastro-esophageal reflux disease without esophagitis; K44.9 Diaphragmatic hernia without obstruction or gangrene; E66.3 Overweight; E78.00 Pure hypercholesterolemia, unspecified; I70.0 Atherosclerosis of aorta; Z95.5 Presence of coronary angioplasty implant and graft; Z79.82 Long term (current) use of aspirin; Z79.899 Other long term (current) drug therapy; Z87.891 Personal history of nicotine dependence; Z91.013 Allergy to seafood; Z91.81 History of falling

== ENCOUNTER 2017-06-23 10:45 | Inpatient (IN) | payer OTHER, BC ==
[2017-06-23 11:38] VITALS: BMI 29.9
--- NOTE | 2017-06-23 14:03 | CP.PCM.CON ---
History of Present Illness - History of Present Illness History of Present Illness: THE PATIENT IS AN 82 YEAR OLD FEMALE WHO HAS A TIA A FEW DAYS AGO AND WAS ADMITTED TO AND IS NOW TRANSFERRED TO TCU FOR SUBACUTE REHAB AND OT AND SPEECH THERAPY. HE VOMITED THE DAY [facility] WELL ON THE DAY OF ADMISSION TO HE AND DID NOT TAKE HIS MEDICINES FOR HYPERTENSION AND HIS BLOOD PRESSURE WAS ELEVATED WHEN HE ARRIVED IN THE HOSPITAL. HE WAS CONFUSED AND COULD NOT SPEAK WELL AND HIS MEMORY POOR FOR A COUPLE OF DAYS. HE NEVER HAD ANY FOCAL DEFICITS. HE ALSO HAS A HISTORY OF CAD WITH A CORONARY STENT INSERTION SEVERAL YEARS AGO, HYPERTENSION, HYPERLIPIDEMIA, GERDS AND HE IS OVERWEIGHT. HE DENIES CHEST PAIN OR PALPITATIONS. CARDIOLOGY WAS ASKED TO SEE AND FOLLOW HIM IN TCU. Past Patient History - Tetanus Immunizations Tetanus Immunization: Unknown - Past Medical History & Family History Past Medical History?: Yes - Past Social History Smoking Status: Former Smoker - CARDIAC Hx Cardiac Disorders: Yes Hx Hypertension: Yes - PULMONARY Hx Chronic Obstructive Pulmonary Disease (COPD): No - NEUROLOGICAL HX Cerebrovascular Accident: No Hx Transient Ischemic Attacks (TIA): Yes - HEENT Hx HEENT Problems: No - RENAL Hx Chronic Kidney Disease: No - ENDOCRINE/METABOLIC Hx Diabetes Mellitus Type 2: Yes - HEMATOLOGICAL/ONCOLOGICAL Hx Blood Disorders: No Hx AIDS: No Hx Human Immunodeficiency Virus (HIV): No - INTEGUMENTARY Hx Dermatological Problems: No - MUSCULOSKELETAL/RHEUMATOLOGICAL Hx Arthritis: No Hx Falls: Yes (prior to admission) Hx Rheumatoid Arthritis: No - GASTROINTESTINAL Hx Gastrointestinal Disorders: Yes - GENITOURINARY/GYNECOLOGICAL Hx Genitourinary Disorders: No - PSYCHIATRIC Hx Psychophysiologic Disorder: No Hx Substance Use: No - SURGICAL HISTORY Hx Surgeries: Yes Hx Coronary Stent: Yes (10 YRS AGO) - ANESTHESIA Hx Anesthesia: Yes Hx Anesthesia Reactions: No Meds Allergies/Adverse Reactions: Allergies Allergy/AdvReac Type Severity Reaction Status Date / Time shrimp Allergy REDNESS Verified 09/16/16 11:04 simvastatin [From Zocor] Allergy RASH Verified 06/23/17 12:28 - Medications Medications: Current Medications Aspirin (Ecotrin) 81 mg PO DAILY [facility] Atorvastatin Calcium (Lipitor) 10 mg PO DIN [facility] Enoxaparin Sodium (Lovenox) 40 mg SC DAILY [facility] PRN Reason: Protocol Insulin Human Lispro (Humalog) 0 units SC ACHS [facility] PRN Reason: Protocol Lisinopril (Zestril) 10 mg PO DAILY [facility] Metoprolol Succinate (Toprol Xl) 50 mg PO DAILY [facility] Pantoprazole Sodium (Protonix Ec Tab) 40 mg PO DAILY [facility] Physical Exam - Respiratory Exam Respiratory Exam: Clear to Auscultation Bilateral - Cardiovascular Exam Cardiovascular Exam: REGULAR RHYTHM, +S1, +S2 - Extremities Exam Extremities exam: Positive for: normal inspection - Additional Findings Additional findings: EKG AND TROPONINS WERE NEGATIVE ON 4N Assessment & Plan - Assessment and Plan (Free Text) Assessment: TIA CAD-STABLE HYPERTENSION HYPERLIPIDEMIA Plan: CONTINUE ASPIRIN, METOPROLOL, ATORVASTATIN, LISINOPRIL AND LOVENOX CONTINUE PHYSICAL THERAPY
[2017-06-23 15:38] VITALS: RESP 20
[2017-06-23] MEDS: Insulin Lispro (humaLOG) 100 Units/ml Inj SC SCH ×2 (17:00→22:07)
[2017-06-24] MEDS: Insulin Lispro (humaLOG) 100 Units/ml Inj SC SCH ×4 (06:33→21:32)
[2017-06-24] MEDS: Pantoprazole 40 mg EC Tab PO SCH (08:42)
[2017-06-24] MEDS: Metoprolol Succinate 50 mg XL Tab PO SCH (08:42)
[2017-06-24] MEDS: Enoxaparin 40 mg Syringe SC SCH (08:44)
--- NOTE | 2017-06-24 09:51 | CP.PCM.HP ---
History of Present Illness - History of Present Illness History of Present Illness: Chief Complaint : difficulty finding words , memmory impairment HPI: 82 y/o gent with hx of HTN, CAD , DM, who was initially admitted to Telemetry on 06/20 after he was noted to have alteration of mental status. His noticed pt was very confused and disoriented. he was admitted for CVA, started on ASA, statin. Neurology and Cardiology were consulted. MRI of Brain did not show any acut Infarct nor bleed however his MRI was limited by motion artifacts thus we cannot totally r/o a small lacunar infarct. His mental status improved however he is not yet back to his baseline. He continues to have some cognitive impairment . He is now admitted to TCU for further PT/OT and Spech therapy . Present on Admission - Present on Admission Any Indicators Present on Admission: No Review of Systems - Review of Systems All systems: reviewed and no additional remarkable complaints except - Constitutional Constitutional: absent: Fever, Headache, Weakness - EENT Eyes: absent: Blurred Vision, Change in Vision, Photophobia Ears: absent: Ear Discharge, Ear Pain, Tinnitus Nose/Mouth/Throat: absent: Nasal Congestion, Nasal Discharge, Sinus Pressure - Cardiovascular Cardiovascular: absent: Chest Pain, Chest Pain at Rest, Lightheadedness, Orthopnea, Paroxysmal Nocturnal Dyspnea - Respiratory Respiratory: absent: Cough, Dyspnea, Hemoptysis - Gastrointestinal Gastrointestinal: absent: Abdominal Pain, Nausea, Vomiting - Genitourinary Genitourinary: absent: Difficulty Urinating, Dysuria, Hematuria - Musculoskeletal Musculoskeletal: absent: Arthralgias, Back Pain, Muscle Weakness - Integumentary Integumentary: absent: Lesions, Pruritus, Rash - Neurological Neurological: Memory Loss. absent: Dizziness, Numbness, Focal Weakness, Headaches, Lack of Coordination, Loss of Vision - Psychiatric Psychiatric: absent: Anxiety, Depression, Hopelessness, Paranoia, Suicidal Ideation - Endocrine Endocrine: absent: Polydipsia, Polyphagia, Polyuria - Hematologic/Lymphatic Hematologic: absent: Easy Bleeding, Easy Bruising Past Patient History - Infectious Disease Hx of Infectious Diseases: None - Tetanus Immunizations Tetanus Immunization: Unknown - Past Medical History & Family History Past Medical History?: Yes Past Family History: Reviewed and not pertinent - Past Social History Smoking Status: Former Smoker Chewing Tobacco Use: No Cigar Use: No Occupation: retired ad mechanical maintenance supervisor Alcohol: Occasional Drugs: Denies Home Situation {Lives}: With Family Domestic Violence: Negative - CARDIAC Hx Cardiac Disorders: Yes Hx Heart Attack: Yes Hx Hypercholesterolemia: Yes Hx Hypertension: Yes - PULMONARY Hx Chronic Obstructive Pulmonary Disease (COPD): No - NEUROLOGICAL HX Cerebrovascular Accident: Yes - HEENT Hx HEENT Problems: No - RENAL Hx Chronic Kidney Disease: No - ENDOCRINE/METABOLIC Hx Diabetes Mellitus Type 2: Yes - HEMATOLOGICAL/ONCOLOGICAL Hx Blood Disorders: No Hx AIDS: No Hx Human Immunodeficiency Virus (HIV): No - INTEGUMENTARY Hx Dermatological Problems: No - MUSCULOSKELETAL/RHEUMATOLOGICAL Hx Arthritis: No Hx Falls: Yes (prior to admission) Hx Rheumatoid Arthritis: No - GASTROINTESTINAL Hx Gastrointestinal Disorders: Yes - GENITOURINARY/GYNECOLOGICAL Hx Genitourinary Disorders: No - PSYCHIATRIC Hx Psychophysiologic Disorder: No Hx Substance Use: No - SURGICAL HISTORY Hx Surgeries: Yes Hx Coronary Stent: Yes (10 YRS AGO) Hx Herniorrhaphy: Yes - ANESTHESIA Hx Anesthesia: Yes Hx Anesthesia Reactions: No Meds Allergies/Adverse Reactions: Allergies Allergy/AdvReac Type Severity Reaction Status Date / Time shrimp Allergy REDNESS Verified 09/16/16 11:04 simvastatin [From Zocor] Allergy RASH Verified 06/23/17 12:28 Physical Exam - Constitutional Appears: No Acute Distress - Head Exam Head Exam: NORMAL INSPECTION, NORMOCEPHALIC - Eye Exam Eye Exam: EOMI, Normal appearance Pupil Exam: NORMAL ACCOMODATION - ENT Exam ENT Exam: Mucous Membranes Moist, Normal External Ear Exam - Neck Exam Neck exam: Positive for: Full Rom. Negative for: Meningismus - Respiratory Exam Respiratory Exam: NORMAL BREATHING PATTERN. absent: Respiratory Distress - Cardiovascular Exam Cardiovascular Exam: REGULAR RHYTHM, +S1, +S2 - GI/Abdominal Exam GI & Abdominal Exam: Normal Bowel Sounds, Soft. absent: Tenderness - Extremities Exam Extremities exam: Positive for: full ROM, normal capillary refill, pedal pulses present. Negative for: calf tenderness, pedal edema - Back Exam Back exam: FULL ROM. absent: CVA tenderness (L), paraspinal tenderness, vertebral tenderness - Neurological Exam Neurological exam: Alert, CN II-XII Intact, Reflexes Normal Additional comments: oriented to person and place only - Psychiatric Exam Psychiatric exam: Normal Affect, Normal Mood - Skin Skin Exam: Dry, Normal Color, Warm Results - Vital Signs Recent Vital Signs: Last Vital Signs Temp 97.1 F L 06/24/17 08:27 Pulse 88 06/24/17 08:42 Resp 20 06/24/17 08:27 BP 155/100 H 06/24/17 08:42 Pulse Ox 99 06/24/17 08:27 - Labs Labs: Laboratory Results - last 24 hr 06/23/17 06/24/17 19:52 04:48 POC Glucose (mg/dL) 101 132 H Assessment & Plan - Assessment and Plan (Free Text) Assessment: 82 yo male with history of DM2, HTN, CAD (stent 10 yrs ago) and HLD initially admitted to Telemetry after he was noted to have alteration in mental status. Pt's noted that pt was very confused and had difficulty expressing himself. He also had fallen at home. He was diagnosed with CVA though MRI of Brain did not show any acute findings , a small lacunar infarct could be ruled out bec the MRI had motion artifacts thus a limited study. and transferred to TCU for Rehab. Patient continues to have Cognitive impairment. (1) CVA (cerebral vascular accident) with Cognitive impairment CT scan: chronic white matter ischemic changes and chronic brainstem lacunar infarct MRI: no acute hemorrhage or infarct, chronic white matter ischemic changes( cannot r/o small lacunar infarct bec study is limited by motion artifacts) EEG pending patient better , now alert, oriented to person and place, still with difficulty recalling and has difficulty finding words Dr Araya, neurologist was consulted Speech for Cognitive eval and tx cont ASA low LDL however pt was on lipitor 80 mg at home - restart Lipitor PT/OT consult CTA of head/Neck : neg Carotid Sono; no significant stenosis ECHO : normal LV fxn, aortic sclerosis TSH, b12 normal BP target 130-140 systolic a discussed with Neuro (2) Fall PT/OT patient was also admitted after a fall last year no fractures on imaging , denies pain , full ROM (3) CAD (coronary artery disease) continue ASA, Metoprolol and Lisinopril cardiology consult with Dr Mcgill - discussed case (4) Hypertension resume Metoprolol and Lisinopril now ok to slowly decrease BP to target of 130-140 syst as per neuro rec (5) DM2 (diabetes mellitus, type 2) HgA1C: 7.2 BS slightly uncontrolled accuchek ACHS with coverage held Metformin 500mg PO q 12hrs as pt received IV contrast for the CTA Glucose controlled so far off meds (6) DVT prophylaxis venodyne boots while in bed. Serena Decision To Admit - Pt Status Changed To: Hospital Disposition Of: Inpatient - Admit Certification Admit to Inpatient:: After my assessment, the patient will require hospitalization for at least two midnights. This is because of the severity of symptoms shown, intensity of services needed, and/or the medical risk in this patient being treated as an outpatient. - . Bed Request Type: Transitional Care Unit Admitting Physician: Milvia Yip
--- NOTE | 2017-06-24 10:43 | CP.PCM.PN ---
Subjective - Date & Time of Evaluation Date of Evaluation: 06/24/17 Time of Evaluation: 10:30 - Subjective Subjective: NO CHEST PAIN OR SOB STATES HE CAN TELL THAT HIS MEMORY AND SPEECH ARE STILL OFF Objective - Vital Signs/Intake and Output Vital Signs (last 24 hours): Temp Pulse Resp BP Pulse Ox 97.1 F L 88 20 155/100 H 99 06/24/17 08:27 06/24/17 08:42 06/24/17 08:27 06/24/17 08:42 06/24/17 08:27 - Medications Medications: Current Medications Aspirin (Ecotrin) 81 mg PO DAILY [facility] Last Admin: 06/24/17 08:42 Dose: 81 mg Atorvastatin Calcium (Lipitor) 40 mg PO HS [facility] Enoxaparin Sodium (Lovenox) 40 mg SC DAILY [facility] PRN Reason: Protocol Last Admin: 06/24/17 08:44 Dose: 40 mg Insulin Human Lispro (Humalog) 0 units SC [facility] PRN Reason: Protocol Last Admin: 06/24/17 06:33 Dose: Not Given Lisinopril (Zestril) 20 mg PO DAILY [facility] Last Admin: 06/24/17 08:42 Dose: 20 mg Metoprolol Succinate (Toprol Xl) 50 mg PO DAILY [facility] Last Admin: 06/24/17 08:42 Dose: 50 mg Pantoprazole Sodium (Protonix Ec Tab) 40 mg PO DAILY [facility] Last Admin: 06/24/17 08:42 Dose: 40 mg - Respiratory Exam Respiratory Exam: Clear to Ausculation Bilateral - Cardiovascular Exam Cardiovascular Exam: REGULAR RHYTHM, +S1, +S2 - Extremities Exam Extremities Exam: Normal Inspection Assessment and Plan - Assessment and Plan (Free Text) Assessment: TIA CAD-STABLE HYPERTENSION HYPERLIPIDEMIA Plan: CONTINUE METOPROLOL, ASPIRIN, ATORVASTATIN, LOVENOX AND LISINOPRIL CONTINUE PHYSICAL, SPEECH AND OCCUPATIONAL THERAPIES
[2017-06-25] MEDS: Insulin Lispro (humaLOG) 100 Units/ml Inj SC SCH ×4 (07:50→21:37)
[2017-06-25] MEDS: Pantoprazole 40 mg EC Tab PO SCH (08:27)
[2017-06-25] MEDS: Metoprolol Succinate 50 mg XL Tab PO SCH (08:29)
[2017-06-25] MEDS: Enoxaparin 40 mg Syringe SC SCH (08:30)
--- NOTE | 2017-06-25 12:51 | CP.PCM.PN ---
Subjective - Date & Time of Evaluation Date of Evaluation: 06/25/17 Time of Evaluation: 09:30 - Subjective Subjective: NO CHEST PAIN OR SOB Objective - Vital Signs/Intake and Output Vital Signs (last 24 hours): Temp Pulse Resp BP Pulse Ox 97.0 F L 60 20 152/92 H 99 06/25/17 08:23 06/25/17 08:29 06/25/17 08:23 06/25/17 08:29 06/25/17 08:23 - Medications Medications: Current Medications Amlodipine Besylate (Norvasc) 5 mg PO DAILY [facility] Last Admin: 06/25/17 08:28 Dose: 5 mg Aspirin (Ecotrin) 81 mg PO DAILY [facility] Last Admin: 06/25/17 08:28 Dose: 81 mg Atorvastatin Calcium (Lipitor) 40 mg PO HS [facility] Last Admin: 06/24/17 21:33 Dose: 40 mg Enoxaparin Sodium (Lovenox) 40 mg SC DAILY [facility] PRN Reason: Protocol Last Admin: 06/25/17 08:30 Dose: 40 mg Insulin Human Lispro (Humalog) 0 units SC [facility] PRN Reason: Protocol Last Admin: 06/25/17 11:50 Dose: Not Given Lisinopril (Zestril) 20 mg PO DAILY [facility] Last Admin: 06/25/17 08:29 Dose: 20 mg Metoprolol Succinate (Toprol Xl) 50 mg PO DAILY [facility] Last Admin: 06/25/17 08:29 Dose: 50 mg Pantoprazole Sodium (Protonix Ec Tab) 40 mg PO DAILY [facility] Last Admin: 06/25/17 08:27 Dose: 40 mg - Respiratory Exam Respiratory Exam: Clear to Ausculation Bilateral - Cardiovascular Exam Cardiovascular Exam: REGULAR RHYTHM, +S1, +S2 - Extremities Exam Extremities Exam: Normal Inspection Assessment and Plan - Assessment and Plan (Free Text) Assessment: TIA CAD-STABLE HYPERTENSION HYPERLIPIDEMIA Plan: CONTINUE ASPIRIN, METOPROLOL, LISINOPRIL AND ATORVASTATIN CONTINUE PHYSICAL AND SPEECH THERAPY
[2017-06-26] MEDS: Insulin Lispro (humaLOG) 100 Units/ml Inj SC SCH ×4 (06:34→21:31)
[2017-06-26] MEDS: Enoxaparin 40 mg Syringe SC SCH (08:32)
[2017-06-26] MEDS: Pantoprazole 40 mg EC Tab PO SCH (08:32)
[2017-06-26] MEDS: Metoprolol Succinate 50 mg XL Tab PO SCH (09:06)
[2017-06-27] MEDS: Insulin Lispro (humaLOG) 100 Units/ml Inj SC SCH ×4 (07:01→21:13)
[2017-06-27] MEDS: Pantoprazole 40 mg EC Tab PO SCH (08:32)
[2017-06-27] MEDS: Metoprolol Succinate 50 mg XL Tab PO SCH (08:34)
[2017-06-27] MEDS: Enoxaparin 40 mg Syringe SC SCH (08:35)
--- NOTE | 2017-06-27 13:27 | CP.PCM.PN ---
Subjective - Date & Time of Evaluation Date of Evaluation: 06/27/17 Time of Evaluation: 13:00 - Subjective Subjective: NO COMPLAINTS STATES HE IS MUCH BETTER, THINKING AND TALKING BETTER Objective - Vital Signs/Intake and Output Vital Signs (last 24 hours): Temp Pulse Resp BP Pulse Ox 97.7 F 69 20 133/98 H 96 06/27/17 09:33 06/27/17 09:33 06/27/17 09:33 06/27/17 09:33 06/27/17 09:33 - Medications Medications: Current Medications Amlodipine Besylate (Norvasc) 5 mg PO DAILY [facility] Last Admin: 06/27/17 08:34 Dose: 5 mg Aspirin (Ecotrin) 81 mg PO DAILY [facility] Last Admin: 06/27/17 08:33 Dose: 81 mg Atorvastatin Calcium (Lipitor) 40 mg PO HS [facility] Last Admin: 06/26/17 21:32 Dose: 40 mg Insulin Human Lispro (Humalog) 0 units SC [facility] PRN Reason: Protocol Last Admin: 06/27/17 12:48 Dose: 2 u Lisinopril (Zestril) 20 mg PO DAILY [facility] Last Admin: 06/27/17 08:33 Dose: 20 mg Metoprolol Succinate (Toprol Xl) 50 mg PO DAILY [facility] Last Admin: 06/27/17 08:34 Dose: 50 mg Pantoprazole Sodium (Protonix Ec Tab) 40 mg PO DAILY [facility] Last Admin: 06/27/17 08:32 Dose: 40 mg - Respiratory Exam Respiratory Exam: Clear to Ausculation Bilateral - Cardiovascular Exam Cardiovascular Exam: REGULAR RHYTHM, +S1, +S2 - Extremities Exam Extremities Exam: Normal Inspection Assessment and Plan - Assessment and Plan (Free Text) Assessment: TIA CAD HYPERTENSION HYPERLIPIDEMIA Plan: CONTINUE ASPIRIN, METOPROLOL, LISINOPROL, AMLODIPINE AND ATORVASTATIN CONTINUE PHYSICAL AND SPEECH THERAPY FOR DISCHARGE TOMORROW IF STABLE
[2017-06-28] MEDS: Insulin Lispro (humaLOG) 100 Units/ml Inj SC SCH ×2 (06:56→11:54)
[2017-06-28 08:12] VITALS: BP 147/92; PULSE 70; TEMP 97.7; O2SAT 99
[2017-06-28] MEDS: Metoprolol Succinate 50 mg XL Tab PO SCH (08:25)
[2017-06-28] MEDS: Pantoprazole 40 mg EC Tab PO SCH (08:25)
--- NOTE | 2017-06-28 10:00 | CP.PCM.PN ---
Subjective - Date & Time of Evaluation Date of Evaluation: 06/28/17 Time of Evaluation: 08:45 - Subjective Subjective: NO COMPLAINTS FEELS GOOD, MEMORY AND SPEECH ARE ESSENTIALLY BACK TO NORMAL Objective - Vital Signs/Intake and Output Vital Signs (last 24 hours): Temp Pulse Resp BP Pulse Ox 97.7 F 70 20 147/92 H 99 06/28/17 08:09 06/28/17 08:25 06/28/17 08:09 06/28/17 08:25 06/28/17 08:09 - Medications Medications: Current Medications Amlodipine Besylate (Norvasc) 5 mg PO DAILY [facility] Last Admin: 06/28/17 08:25 Dose: 5 mg Aspirin (Ecotrin) 81 mg PO DAILY [facility] Last Admin: 06/28/17 08:25 Dose: 81 mg Atorvastatin Calcium (Lipitor) 40 mg PO HS [facility] Last Admin: 06/27/17 21:08 Dose: 40 mg Insulin Human Lispro (Humalog) 0 units SC [facility] PRN Reason: Protocol Last Admin: 06/28/17 06:56 Dose: 2 u Lisinopril (Zestril) 20 mg PO DAILY [facility] Last Admin: 06/28/17 08:25 Dose: 20 mg Metoprolol Succinate (Toprol Xl) 50 mg PO DAILY [facility] Last Admin: 06/28/17 08:25 Dose: 50 mg Pantoprazole Sodium (Protonix Ec Tab) 40 mg PO DAILY [facility] Last Admin: 06/28/17 08:25 Dose: 40 mg - Respiratory Exam Respiratory Exam: Clear to Ausculation Bilateral - Cardiovascular Exam Cardiovascular Exam: REGULAR RHYTHM, +S1 - Extremities Exam Extremities Exam: Normal Inspection Assessment and Plan - Assessment and Plan (Free Text) Assessment: TIA CAD-STABLE HYPERTENSION HYPERLIPIDEMIA Plan: FOR DISCHARGE TO HOME TODAY OV WITH ME IN ONE WEEK CONTINUE PRESENT MEDICATIONS EXCEPT FOR ATORVASTATIN WHICH WILL BE AT 80 MGS PO DAILY
--- NOTE | 2017-06-28 11:15 | CP.PCM.DIS ---
Provider - Provider Date of Admission: 06/23/17 11:38 Attending physician: Milvia Yip MD Primary care physician: Dev Mcgill Consults: Cardiology consultation: Dev Arreola Time Spent in preparation of Discharge (in minutes): 30 Diagnosis - Discharge Diagnosis (1) CVA (cerebral vascular accident) Status: Acute Priority: High (2) Fall Status: Acute (3) CAD (coronary artery disease) Status: Chronic (4) DM2 (diabetes mellitus, type 2) Status: Chronic (5) Hypertension Status: Chronic (6) Hyperlipidemia Status: Chronic Hospital Course - Lab Results Lab Results: Most Recent Lab Values POC Glucose (mg/dL) 169 mg/dL (65-110) H 06/28/17 05:17 - Hospital Course Hospital Course: 82 yo male with history of DM2, HTN, CAD (stent 10 yrs ago) and HLD initially admitted to Telemetry after he was noted to have alteration in mental status. Pt's noted that pt was very confused and had difficulty expressing himself. He also had fallen at home. He was diagnosed with CVA though MRI of Brain did not show any acute findings , a small lacunar infarct could be ruled out because the MRI had motion artifacts thus a limited study. The patient was subsequently transferred to TCU for Rehab on 06/24/2016. Patient's cognitive status has improved over the weekend and he is stable for discharge home today. He says he feels well and has no complaints today. It was explained to him that he is to take two of his Lipitor pills for a total of 80 mg po HS and will also take Lisinopril 20 mg po daily at home for increased bp control. He will have home care and speech therapy ongoing at home and will follow up with his PMD, Dr. Mcgill, in one week. (1) CVA (cerebral vascular accident) with Cognitive impairment, now improved CT scan: chronic white matter ischemic changes and chronic brainstem lacunar infarct MRI: no acute hemorrhage or infarct, chronic white matter ischemic changes( cannot r/o small lacunar infarct bec study is limited by motion artifacts) patient better , now alert, oriented to person and place Home speech therapy/home care cont ASA Patient has Lipitor 40 mg tablets at home, instructed home to take a total of 80 mg po HS CTA of head/Neck : neg Carotid Sono; no significant stenosis ECHO : normal LV fxn, aortic sclerosis TSH, b12 normal (2) Fall PT/OT patient was also admitted after a fall last year no fractures on imaging during admission, received PT/OT during admission, denies pain , full ROM (3) CAD (coronary artery disease) continue ASA, Metoprolol and Lisinopril as outpatient (4) Hypertension continue Metoprolol and Lisinopril Instructed patient to take a total of 20 mg po daily of his Lisinopril for increased BP control (5) DM2 (diabetes mellitus, type 2) HgA1C: 7.2 Restart Metformin 500mg PO q 12hrs at home Discharge Exam - Head Exam Head Exam: NORMAL INSPECTION, NORMOCEPHALIC - Eye Exam Eye Exam: EOMI, Normal appearance, PERRL - Respiratory Exam Respiratory Exam: Clear to PA & Lateral, NORMAL BREATHING PATTERN, UNREMARKABLE - Cardiovascular Exam Cardiovascular Exam: REGULAR RHYTHM, +S1, +S2 - GI/Abdominal Exam GI & Abdominal Exam: Normal Bowel Sounds, Unremarkable - Back Exam Back exam: NORMAL INSPECTION. absent: paraspinal tenderness, rash noted, tenderness - Neurological Exam Neurological exam: Alert, CN II-XII Intact, Normal Gait, Oriented x3, Reflexes Normal - Psychiatric Exam Psychiatric exam: Normal Affect, Normal Mood - Skin Skin Exam: Dry, Intact, Normal Color, Warm Discharge Plan - Follow Up Plan Condition: GOOD Disposition: HOME/ ROUTINE Instructions: Hypertension (DC), Hypertension (GEN) Additional Instructions: F/u with Dr. Mcgill as per his appointment, return to ED for return of symptoms including alteration in mental status, confusion, or weakness.
== END 2017-06-28 12:11 | disposition home health service (06) | DRG 57 ==
LOC: H.TCU 11:38
PROVIDERS: ADMIT Internal Medicine; ATTEND Internal Medicine
PROC: F07Z9FZ Gait Training/Functional Ambulation Treatment using Assistive, Adaptive, Supportive or Protective Equipment (ICD-10-PCS; principal; 2017-06-23)
PROC: F06Z6MZ Communicative/Cognitive Integration Skills Treatment using Augmentative / Alternative Communication Equipment (ICD-10-PCS; 2017-06-23)
PROC: F08Z4FZ Home Management Treatment using Assistive, Adaptive, Supportive or Protective Equipment (ICD-10-PCS; 2017-06-24)
PROC: F07J6FZ Therapeutic Exercise Treatment of Musculoskeletal System - Head and Neck using Assistive, Adaptive, Supportive or Protective Equipment (ICD-10-PCS; 2017-06-24)
DX: I69.318 Other symptoms and signs involving cognitive functions following cerebral infarction (principal); E11.9 Type 2 diabetes mellitus without complications; I10 Essential (primary) hypertension; E78.5 Hyperlipidemia, unspecified; I25.10 Atherosclerotic heart disease of native coronary artery without angina pectoris; K21.9 Gastro-esophageal reflux disease without esophagitis; E66.3 Overweight; I25.2 Old myocardial infarction; Z68.29 Body mass index [BMI] 29.0-29.9, adult; Z91.81 History of falling; Z95.5 Presence of coronary angioplasty implant and graft; Z87.891 Personal history of nicotine dependence

== ENCOUNTER 2018-10-19 11:29 | Emergency (ER) | payer MEDICARE, BC ==
--- NOTE | 2018-10-19 17:11 | ED PDOC ---
HPI: General Adult Time Seen by Provider: 10/19/18 14:00 Chief Complaint (Provider): Black stool History Per: Patient History/Exam Limitations: no limitations Additional Complaint(s): Pt reports 2 episodes of black stool today. Pt reports pain around the periumbilical area X 3 days so took Peptol-Bismol, last dose yesterday. States pain has since resolved. Denies fever, nausea, vomiting, constipation, diarrhea. Past Medical History Reviewed: Nursing Documentation, Vital Signs - Medical History PMH: CAD, Diabetes, Hiatal Hernia, HTN, Hypercholesterolemia, Hyperlipidemia, TIA Denies: Arthritis, CHF, COPD, HIV, Hypothyroidism, Chronic Kidney Disease, Rheumatoid Arthritis - Surgical History Surgical History: Coronary Stent (10 YRS AGO) - Family History Family History: States: Unknown Family Hx - Social History Current smoker - smoking cessation education provided: No Alcohol: None - Home Medications Home Medications: Ambulatory Orders Medication Instructions Recorded Aspirin [Ecotrin] 81 mg PO DAILY 06/23/17 Metoprolol Succinate XL [Toprol XL] 50 mg PO DAILY tab 06/23/17 Pantoprazole [Protonix EC Tab] 40 mg PO DAILY ect 06/23/17 metFORMIN [glucOPHAGE] 500 mg PO BIDWM tab 06/23/17 Atorvastatin [Lipitor] 80 mg PO HS tab 06/28/17 Lisinopril [Zestril] 20 mg PO DAILY tab 06/28/17 amLODIPine [Norvasc] 5 mg PO DAILY tab 06/28/17 - Allergies Allergies/Adverse Reactions: Allergies Allergy/AdvReac Type Severity Reaction Status Date / Time shrimp Allergy REDNESS Verified 09/16/16 11:04 simvastatin [From Zocor] Allergy RASH Verified 06/23/17 12:28 Review of Systems Constitutional: Negative for: Fever, Chills Cardiovascular: Negative for: Chest Pain Respiratory: Negative for: Cough, Shortness of Breath Gastrointestinal: Positive for: Abdominal Pain (Resolved), Other (Black stool). Negative for: Nausea, Vomiting, Diarrhea, Hematochezia, Hematemesis Genitourinary Male: Negative for: Dysuria, Hematuria Skin: Negative for: Rash, Lesions Neurological: Negative for: Headache, Dizziness Physical Exam - Reviewed Nursing Documentation Reviewed: Yes Vital Signs Reviewed: Yes - Physical Exam Appears: Positive for: Well, No Acute Distress Head Exam: Positive for: ATRAUMATIC, NORMAL INSPECTION Skin: Positive for: Normal Color, Warm, Dry Eye Exam: Positive for: Normal appearance, EOMI, PERRL Cardiovascular/Chest: Positive for: Regular Rate, Rhythm Respiratory: Positive for: Normal Breath Sounds. Negative for: Rales, Rhonchi, Wheezing Gastrointestinal/Abdominal: Positive for: Bowel Sounds, Soft, Tenderness (Mild LLQ). Negative for: Distended, Guarding, Rebound Back: Positive for: Normal Inspection. Negative for: L CVA Tenderness, R CVA Tenderness Extremity: Positive for: Normal ROM Neurologic/Psych: Positive for: Alert, Oriented - Laboratory Results Result Diagrams: 10/19/18 14:30 10/19/18 14:30 Medical Decision Making Medical Decision Makin yo male with black stool and abdominal pain. - labs - EKG - CT abd/pelvis Accession No. : [id number] Patient Name / ID : ABIGAIL FINLEY / [id number] Exam Date : 10/19/2018 17:23:16 ( Approved ) Study Comment : Sex / Age : M / 83Y Creator : Fatimah Bush MD Dictator : Fatimah Bush MD Order Entry Clerk : Online Tutor : Fatimah Bush MD Approver2 : Report Date : 10/19/2018 18:01:36 My Comment : This report is currently processing and HAS NOT BEEN OFFICIALLY SIGNED BY THE PHYSICIAN - ESTIMATED TIME OF APPROVAL IS 10/19/2018 18:06. Date of service: 10/19/2018 PROCEDURE: CT Abdomen and Pelvis with contrast HISTORY: Periumbilical pain COMPARISON: None available. TECHNIQUE: CT scan of the abdomen and pelvis was performed after administration of intravenous contrast. Oral contrast was not administered. Coronal and sagittal reformatted images were obtained. Contrast dose: Radiation dose: Total exam DLP = 769.36 mGy-cm. This CT exam was performed using one or more of the following dose reduction techniques: Automated exposure control, adjustment of the mA and/or kV according to patient size, and/or use of iterative reconstruction technique. FINDINGS: LOWER THORAX: The visualized lungs are clear. LIVER: Normal in size. Diffuse fatty liver. Homogeneous enhancement. No gross lesion or ductal dilatation. GALLBLADDER AND BILE DUCTS: Well distended. There is a 1.7 cm peripherally calcified stone in the neck of the gallbladder. No wall thickening or pericholecystic fluid. PANCREAS: Mild fatty atrophy of the pancreas. Normal homogeneous enhancement. No gross l esion or ductal dilatation. SPLEEN: Normal in size and appearance. ADRENALS: There are 2 adenomas in the right adrenal gland measuring 2.0 cm and 1.4 cm. No discrete nodule in the left adrenal gland. KIDNEYS AND URETERS: Normal in size with homogeneous enhancement. No hydronephrosis. There are few simple cysts in the kidneys, the largest in the right interpolar region measures 2.9 x 2.9 cm. VASCULATURE: There is an infrarenal fusiform aortic aneurysm measuring 4.2 x 4.9 cm. There is segmental right-sided extensive mural plaque with severe luminal narrowing. Within the on opacified plaque, there is focal medial displacement of the calcified plaque (series 2, image 41 and series 601, image 57). There is also non contiguous longitudinal high attenuation within the mural plaque. BOWEL: Evaluation of the bowel is limited in the absence of oral contrast. The small bowel loops are normal in caliber. There is extensive colonic diverticulosis without CT evidence for acute diverticulitis. No bowel wall thickening or obstruction. APPENDIX: Not well visualized. There are no inflammatory changes in the right lower quadrant. PERITONEUM: No free fluid. No free air. LYMPH NODES: No enlarged lymph nodes. BLADDER: Well distended and normal in appearance. REPRODUCTIVE: There is moderate enlargement of the prostate gland with central coarse calcifications. BONES: No acute fracture. Diffuse bone demineralization and multilevel degenerative changes in the lower lumbar spine. OTHER FINDINGS: There is a large sliding hiatal hernia. IMPRESSION: 1. Infrarenal fusiform aortic aneurysm measuring 4.2 x 4.9 cm. Right-sided segmental mural plaque with severe luminal narrowing. 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 2. Extensive colonic diverticulosis without CT evidence for acute diverticulitis. 3. Cholelithiasis. 4. Large sliding hiatal hernia. 18:00 Spoke with patient's , states he has h/o aortic aneurysm but unsure of dissection. Dr. Clarke (private Vascular surgeon @ [facility]) paged. 19:[address] Clarke, CT findings reviewed, states can be discharged home to follow-up in office. Disposition - Clinical Impression Clinical Impression: Black stools, Aortic aneurysm - Disposition Referrals: Dev Mcgill MD [Staff Provider] - Disposition: Routine/Home Disposition Time: 19:21 Condition: STABLE Additional Instructions: FOLLOW-UP WITH DR. CLARKE WITHIN 2 DAYS FOR REEVALUATION. Instructions: Abdominal Aortic Aneurysm Forms: [facility] (Ukrainian)
[2018-10-19 17:17] VITALS: BMI 25.1
[2018-10-19] MEDS ORDERED: Sodium Chloride 0.9% 50 ML IV ONE (17:22)
[2018-10-19] MEDS ORDERED: Iohexol 300 100 ML IJ ONE (17:22)
--- NOTE | 2018-10-19 18:05 | CT ---
Date of service: 10/19/2018 PROCEDURE: CT Abdomen and Pelvis with contrast HISTORY: Periumbilical pain COMPARISON: None available. TECHNIQUE: CT scan of the abdomen and pelvis was performed after administration of intravenous contrast. Oral contrast was not administered. Coronal and sagittal reformatted images were obtained. Contrast dose: Radiation dose: Total exam DLP = 769.36 mGy-cm. This CT exam was performed using one or more of the following dose reduction techniques: Automated exposure control, adjustment of the mA and/or kV according to patient size, and/or use of iterative reconstruction technique. FINDINGS: LOWER THORAX: The visualized lungs are clear. LIVER: Normal in size. Diffuse fatty liver. Homogeneous enhancement. No gross lesion or ductal dilatation. GALLBLADDER AND BILE DUCTS: Well distended. There is a 1.7 cm peripherally calcified stone in the neck of the gallbladder. No wall thickening or pericholecystic fluid. PANCREAS: Mild fatty atrophy of the pancreas. Normal homogeneous enhancement. No gross lesion or ductal dilatation. SPLEEN: Normal in size and appearance. ADRENALS: There are 2 adenomas in the right adrenal gland measuring 2.0 cm and 1.4 cm. No discrete nodule in the left adrenal gland. KIDNEYS AND URETERS: Normal in size with homogeneous enhancement. No hydronephrosis. There are few simple cysts in the kidneys, the largest in the right interpolar region measures 2.9 x 2.9 cm. VASCULATURE: There is an infrarenal fusiform aortic aneurysm measuring 4.2 x 4.9 cm. There is segmental right-sided extensive mural plaque with severe luminal narrowing. Within the on opacified plaque, there is focal medial displacement of the calcified plaque (series 2, image 41 and series 601, image 57). There is also non contiguous longitudinal high attenuation within the mural plaque. BOWEL: Evaluation of the bowel is limited in the absence of oral contrast. The small bowel loops are normal in caliber. There is extensive colonic diverticulosis without CT evidence for acute diverticulitis. No bowel wall thickening or obstruction. APPENDIX: Not well visualized. There are no inflammatory changes in the right lower quadrant. PERITONEUM: No free fluid. No free air. LYMPH NODES: No enlarged lymph nodes. BLADDER: Well distended and normal in appearance. REPRODUCTIVE: There is moderate enlargement of the prostate gland with central coarse calcifications. BONES: No acute fracture. Diffuse bone demineralization and multilevel degenerative changes in the lower lumbar spine. OTHER FINDINGS: There is a large sliding hiatal hernia. IMPRESSION: 1. Infrarenal fusiform aortic aneurysm measuring 4.2 x 4.9 cm. Right-sided segmental mural plaque with severe luminal narrowing. 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 2. Extensive colonic diverticulosis without CT evidence for acute diverticulitis. 3. Cholelithiasis. 4. Large sliding hiatal hernia. This critical findings were discussed with Dr. Samantha navarro in the ER on 10/19/2018 at 5:45 p.m.
[2018-10-19 18:35] VITALS: BP 147/83; PULSE 87; RESP 18; TEMP 98; O2SAT 98
[2018-10-19 18:57] LABS: BASO % 0.2 % (0.0-2.0); BLOOD UREA NITROGEN 32 mg/dl (9-20); CALCIUM 10.1 mg/dL (8.4-10.2); EOS % 0.6 % (0.0-4.0); GFR NON-AFRICAN AMERICAN > 60; HEMOGLOBIN 12.6 g/dL (12.0-18.0); LYMPH # 1.4 K/uL (1.0-4.3); LYMPH % 18.9 % (20.0-40.0); MEAN CELL VOLUME 90.5 fl (80.0-94.0); MEAN CORPUSCULAR HEMOGLOBIN 29.1 pg (27.0-31.0); MEAN CORPUSCULAR HGB CONC 32.2 g/dL (33.0-37.0); MEAN PLATELET VOLUME 8.7 fl (7.2-11.7); MONO # 0.7 K/uL (0.0-0.8); MONO % 10.1 % (0.0-10.0); NEUT # 5.1 K/uL (1.8-7.0); NEUT % 70.2 % (50.0-75.0); NRBC % 0.1 % (0.0-0.0); RBC 4.34 Mil/uL (4.40-5.90); RED CELL DISTRIBUTION WIDTH 15.2 % (11.5-14.5); WHITE BLOOD COUNT 7.3 K/uL (4.8-10.8)
[2018-10-19 18:58] LABS: ALBUMIN 3.8 g/dL (3.5-5.0)
[2018-10-19 18:59] LABS: ALB/GLOB RATIO 1.2 (1.0-2.1); AST/SGOT 19 U/L (17-59)
[2018-10-19 19:00] LABS: ALT/SGPT 23 U/L (21-72); INR 1.3; PROTHROMBIN TIME 14.5 Seconds (9.8-13.1)
--- NOTE | 2018-10-27 09:15 | CARD ---
APPROVED REPORT Date of service: 10/19/2018 EKG Measurement Heart [id number] 160P-5 [id number] <Conclusion> Sinus rhythm with occasional premature ventricular complexes and premature atrial complexes Left axis deviation Minimal voltage criteria for LVH, may be normal variant Left anterior fascicular block Poor R wave progression Abnormal ECG
== END 2018-10-19 19:42 | disposition home or self-care (01) ==
LOC: H.EDDOWN 11:29
DX: I71.9 Aortic aneurysm of unspecified site, without rupture (principal); K92.1 Melena; E11.9 Type 2 diabetes mellitus without complications; I10 Essential (primary) hypertension; Z86.73 Personal history of transient ischemic attack (TIA), and cerebral infarction without residual deficits; Z95.5 Presence of coronary angioplasty implant and graft; Z79.84 Long term (current) use of oral hypoglycemic drugs; Z79.82 Long term (current) use of aspirin
CPT/HCPCS: 36415; 74177; 80053; 85025; 85610; 85730; 93005; 99281; G0328; Q9967